=== PATIENT | male | born 1935 | race Caucasian/White ===

== ENCOUNTER 2017-01-06 10:52 | Emergency (ER) | payer MEDICARE ==
[~2017-01-06] VITALS: Ht 172.7 cm; Wt 124.0 kg
[~2017-01-06 10:52] MED LIST: DUONSOL2 NEB; LEVO50TA51 PO; LORTA5 PO; LOTR15T TOP; LOVA1TAB47 PO
[2017-01-06 10:58] VITALS: BP 116/60; PULSE 80; RESP 18; TEMP 98.4; O2SAT 96
--- NOTE | 2017-01-06 11:19 | PD ---
HPI Chief Complaint: General Weakness Time Seen by Provider: 11:06 Travel History International Travel<30 days: No Contact w/Intl Traveler<30days: No Traveled to known affect area: No History of Present Illness HPI This patient takes Coumadin. He had an INR drawn yesterday. This morning his called the doctor's office to check on the results and when they checked on the results he was advised to come to the emergency room because his level was too high. He does not know actual number. He is not having any bleeding. He does not even know why he takes Coumadin. He complains of some vague general weakness for the last one month but nothing acute today. Severity is mild to moderate. No alleviating factors. PFSH Past Medical History Hx Anticoagulant Therapy: Yes Arthritis: Yes Cancer: Yes (BASIL SKIN CANCER EAR) Cardiovascular Problems: Yes Diabetes: Yes Endocrine: Yes GERD: Yes Gout: Yes Genitourinary: No Hepatitis: No Hiatal Hernia: No Hypertension: Yes Musculoskeletal: Yes Neurologic: No Psychiatric: No Reproductive: No Respiratory: Yes (SOB WHILE WALKING TOO FAR) Integumentary: Yes Myocardial Infarction: Yes (UNKNOWN WHEN) Renal Failure: Yes Thyroid Disease: Yes (HYPOTHYROIDISM) Past Surgical History Abdominal Surgery: No Cardiac Surgery: No Ear Surgery: No Endocrine Surgery: No Eye Surgery: Yes (CATARACTS) Genitourinary Surgery: Yes (TRANSURETHRAL RECECTION OF BLADDER) Oral Surgery: No Thoracic Surgery: No Tonsillectomy: Yes Social History Alcohol Use: No Tobacco Use: No Substance Use: No Allergies-Medications (Allergen,Severity, Reaction): Coded Allergies: No Known Allergies (Verified , 01/06/17) Reported Meds & Prescriptions Reported Meds & Active Scripts Active Reported Warfarin 2.5 Mg Tab 2.5 Mg PO DAILY Levothyroxine (Levothyroxine Sodium) 88 Mcg Tab 88 Mcg PO DAILY Allopurinol 300 Mg Tab 300 Mg PO DAILY Atorvastatin (Atorvastatin Calcium) 40 Mg Tab 40 Mg PO HS Metoprolol Tartrate 25 Mg Tab 25 Mg PO BID Potassium Chloride ER (Potassium Chloride) 10 Meq Tab 10 Meq PO DAILY Magnesium Oxide 400 Mg Tab 400 Mg PO DAILY Bumetanide 2 Mg Tab 2 Mg PO DAILY Losartan (Losartan Potassium) 25 Mg Tab 25 Mg PO DAILY Hydrocodone-Acetaminophen 10-325 mg Tab 1 Tab PO Q6H PRN [place] ([place]) 450 Mg Cap 450 Mg PO DAILY D3 Super Strength (Cholecalciferol) 2,000 Unit Cap 2,000 Units PO DAILY Review of Systems General / Constitutional: No: Fever Eyes: No: Visual changes HENT: No: Headaches Cardiovascular: Positive: Edema, No: Chest Pain or Discomfort Respiratory: No: Shortness of Breath Gastrointestinal: No: Abdominal Pain Genitourinary: No: Dysuria Musculoskeletal: Positive: Weakness, Edema, No: Pain Skin: No Rash Neurologic: Positive: Weakness Psychiatric: No: Depression Endocrine: No: Polydipsia Hematologic/Lymphatic: No: Easy Bruising Physical Exam Narrative GENERAL: Well-nourished, well-developed patient in no apparent distress. SKIN: Focused skin assessment reveals no rash and nodules. Skin is Warm and dry. Has very thin skin and diffuse ecchymosis HEAD: Atraumatic. Normocephalic. EYES: Pupils equal and round. No scleral icterus. No injection or drainage. ENT: No nasal bleeding or discharge. Mucous membranes pink and moist. NECK: Trachea midline. No JVD. CARDIOVASCULAR: Regular rate and rhythm. No murmur appreciated. RESPIRATORY: No accessory muscle use. Clear to auscultation. Breath sounds equal bilaterally. GASTROINTESTINAL: Abdomen soft, obese, non-tender, nondistended. Hepatic and splenic margins not palpable. MUSCULOSKELETAL: No obvious deformities. No clubbing. No cyanosis. Symmetric edema of the ankles . NEUROLOGICAL: Awake and alert. No obvious cranial nerve deficits. Motor grossly within normal limits. Normal speech. PSYCHIATRIC: Appropriate mood and affect; insight and judgment normal. Data Data Last Documented VS Vital Signs Date Time Temp Pulse Resp B/P Pulse Ox O2 Delivery O2 Flow Rate FiO2 01/06/17 10:58 98.4 80 18 116/60 96 Orders Iv Access Insert/Monitor (01/06/17 11:14) Complete Blood Count With Diff (01/06/17 11:14) Basic Metabolic Panel (Bmp) (01/06/17 11:14) Prothrombin Time / Inr (Pt) (01/06/17 11:14) Phytonadione Inj ([place] Inj) (01/06/17 12:00) Labs Laboratory Tests Test 01/06/17 11:12 White Blood Count 6.5 TH/MM3 Red Blood Count 4.31 MIL/MM3 Hemoglobin 11.9 GM/DL Hematocrit 36.3 % Mean Corpuscular Volume 84.4 FL Mean Corpuscular Hemoglobin 27.7 PG Mean Corpuscular Hemoglobin 32.9 % Concent Red Cell Distribution Width 15.6 % Platelet Count 409 TH/MM3 Mean Platelet Volume 6.8 FL Neutrophils (%) (Auto) 59.9 % Lymphocytes (%) (Auto) 22.3 % Monocytes (%) (Auto) 13.7 % Eosinophils (%) (Auto) 3.8 % Basophils (%) (Auto) 0.3 % Neutrophils # (Auto) 3.9 TH/MM3 Lymphocytes # (Auto) 1.5 TH/MM3 Monocytes # (Auto) 0.9 TH/MM3 Eosinophils # (Auto) 0.2 TH/MM3 Basophils # (Auto) 0.0 TH/MM3 CBC Comment DIFF FINAL Differential Comment Prothrombin Time GREATER THAN 180.0 SEC Prothromb Time International GREATER THAN Ratio 16.7 RATIO Sodium Level 137 MEQ/L Potassium Level 3.4 MEQ/L Chloride Level 97 MEQ/L Carbon Dioxide Level 29.1 MEQ/L Anion Gap 11 MEQ/L Blood Urea Nitrogen 8 MG/DL Creatinine 1.10 MG/DL Estimat Glomerular Filtration 64 ML/MIN Rate Random Glucose 98 MG/DL Calcium Level 8.7 MG/DL [facility] Medical Decision Making Medical Screen Exam Complete: Yes Emergency Medical Condition: Yes Medical Record Reviewed: Yes Differential Diagnosis Supratherapeutic INR, subtherapeutic INR, electrolyte abnormality, anemia Narrative Course I have reviewed the patient's electronic medical record. IV placed CBC normal Metabolic profile is normal INR on Coumadin is greater than 16 He is not actively bleeding so treatment is to give him vitamin K injection and hold Coumadin I discussed this at length with patient and at bedside He is seeing his primary physician tomorrow in follow-up Diagnosis Primary Impression: Supratherapeutic INR Additional Impression: Generalized weakness Additional Instructions: The patient was advised to follow up with their physician and return if they worsen. Do not take Coumadin today or tomorrow Med/Other Pt SpecificInfo: Other Disposition: 01 DISCHARGE HOME Condition: Stable Mateus Medellin MD Jan 06, 2017 11:19
[2017-01-06 11:27] LABS: AUTOMATED NEUTROPHIL # 3.9 TH/MM3 (1.8-7.7); BASOPHIL % 0.3 % (0.0-2.0); EOSINOPHIL # 0.2 TH/MM3 (0-0.4); EOSINOPHIL % 3.8 % (0.0-4.0); HEMATOCRIT 36.3 % (39.0-51.0); HEMO FLAGS DIFF FINAL; LYMPH % 22.3 % (9.0-44.0); LYMPHOCYTE # 1.5 TH/MM3 (1.0-4.8); MEAN CELL VOLUME 84.4 FL (80.0-100.0); MEAN CORPUSCULAR HEMOGLOBIN 27.7 PG (27.0-34.0); MEAN CORPUSCULAR HGB CONC 32.9 % (32.0-36.0); MONO % 13.7 % (0.0-8.0); NEUT % 59.9 % (16.0-70.0); PLATELET COUNT 409 TH/MM3 (150-450); RED BLOOD COUNT 4.31 MIL/MM3 (4.50-5.90); RED CELL DISTRIBUTION WIDTH 15.6 % (11.6-17.2); WHITE BLOOD COUNT 6.5 TH/MM3 (4.0-11.0)
[2017-01-06 11:34] LABS: POTASSIUM 3.4 MEQ/L (3.5-5.1)
[2017-01-06 11:37] LABS: BICARBONATE 29.1 MEQ/L (21.0-32.0)
[2017-01-06] MEDS ORDERED: CHOL20005 PO (11:40)
[2017-01-06] MEDS ORDERED: ATOR40TA16 PO (11:40)
[2017-01-06] MEDS ORDERED: LOSA25TA PO (11:40)
[2017-01-06] MEDS ORDERED: METO25TA3 PO (11:40)
[2017-01-06] MEDS ORDERED: MAGN400T2 PO (11:40)
[2017-01-06] MEDS ORDERED: ALLO300T2 PO (11:40)
[2017-01-06] MEDS ORDERED: BUME2TAB PO (11:40)
[2017-01-06] MEDS ORDERED: WARF-18 PO (11:40)
[2017-01-06] MEDS ORDERED: SAW450CA2 PO (11:40)
[2017-01-06] MEDS ORDERED: LEVO88TA2 PO (11:40)
[2017-01-06] MEDS ORDERED: POTA10TA2 PO (11:40)
[2017-01-06] MEDS ORDERED: HYDR-3583 PO (11:40)
[2017-01-06 11:45] LABS: PROTHROMBIN TIME - PATIENT GREATER THAN 180.0 SEC (9.8-11.6)
[2017-01-06 11:47] LABS: INTERNATIONAL NORMALIZED RATIO GREATER THAN 16.7 RATIO
[2017-01-06] MEDS ORDERED: PHYTONADIONE INJ 1 MG/0.5 ML AMP SQ ONE (12:00)
[2017-01-06] MEDS ORDERED: PHYTONADIONE 10 MG/ML VIAL SQ ONE (13:00)
--- NOTE | 2017-01-06 17:05 | EKG ---
Date Performed: 01/06/2017 Time Performed: 11:05:25 PTAGE: 81 years EKG: Sinus rhythm WITH FIRST DEGREE AV BLOCK NONSPECIFIC INTRAVENTRICULAR CONDUCTION DELAY NONSPECIFIC ANTEROSEPTAL ST /T ABNORMALITY ABNORMAL ECG NO PREVIOUS TRACING DOCTOR: Brian Bruner Interpretating Date/Time 01/06/2017 17:04:15
== END 2017-01-06 13:00 | disposition home or self-care (01) ==
LOC: EDBD → PHED 10:52
DX: R79.1 Abnormal coagulation profile (principal); R53.1 Weakness; E11.9 Type 2 diabetes mellitus without complications; I12.9 Hypertensive chronic kidney disease with stage 1 through stage 4 chronic kidney disease, or unspecified chronic kidney disease; N18.9 Chronic kidney disease, unspecified; I25.2 Old myocardial infarction; E03.9 Hypothyroidism, unspecified; Z79.01 Long term (current) use of anticoagulants
CPT/HCPCS: 80048; 85025; 85610; 93005; 96372; 99284; J3430

== ENCOUNTER 2017-01-07 13:20 | Emergency (ER) | payer MEDICARE ==
[~2017-01-07] VITALS: Ht 172.7 cm; Wt 135.5 kg
[~2017-01-07 13:20] MED LIST changes: +ALLO300T2 PO; +ATOR40TA16 PO; +BUME2TAB PO; +CHOL20005 PO; -DUONSOL2 NEB; +HYDR-3583 PO; -LEVO50TA51 PO; +LEVO88TA2 PO; -LORTA5 PO; +LOSA25TA PO; -LOTR15T TOP; -LOVA1TAB47 PO; +MAGN400T2 PO; +METO25TA3 PO; +POTA10TA2 PO; +SAW450CA2 PO; +WARF-18 PO
[2017-01-07 13:25] VITALS: BP 140/99; PULSE 71; RESP 16; TEMP 98.3; O2SAT 96
[2017-01-07 14:07] LABS: AUTOMATED NEUTROPHIL # 3.2 TH/MM3 (1.8-7.7); BASOPHIL % 0.2 % (0.0-2.0); EOSINOPHIL # 0.3 TH/MM3 (0-0.4); EOSINOPHIL % 4.5 % (0.0-4.0); HEMATOCRIT 33.8 % (39.0-51.0); HEMO FLAGS DIFF FINAL; LYMPH % 22.4 % (9.0-44.0); LYMPHOCYTE # 1.3 TH/MM3 (1.0-4.8); MEAN CELL VOLUME 84.4 FL (80.0-100.0); MEAN CORPUSCULAR HEMOGLOBIN 28.5 PG (27.0-34.0); MEAN CORPUSCULAR HGB CONC 33.7 % (32.0-36.0); MONO % 15.1 % (0.0-8.0); NEUT % 57.8 % (16.0-70.0); PLATELET COUNT 372 TH/MM3 (150-450); RED BLOOD COUNT 4.01 MIL/MM3 (4.50-5.90); RED CELL DISTRIBUTION WIDTH 15.6 % (11.6-17.2); WHITE BLOOD COUNT 5.7 TH/MM3 (4.0-11.0)
[2017-01-07 14:20] LABS: CHLORIDE 97 MEQ/L (98-107); POTASSIUM 3.3 MEQ/L (3.5-5.1); SODIUM (NA) 136 MEQ/L (136-145)
[2017-01-07 14:25] LABS: ANION GAP 10 MEQ/L (5-15); BICARBONATE 28.7 MEQ/L (21.0-32.0); BLOOD UREA NITROGEN 10 MG/DL (7-18)
--- NOTE | 2017-01-07 14:26 | PD ---
HPI Chief Complaint: Abnormal Results Time Seen by Provider: 13:34 Travel History International Travel<30 days: No Contact w/Intl Traveler<30days: No Traveled to known affect area: No History of Present Illness HPI This 81-year-old male comes because of an elevated INR. He was seen in the emergency department yesterday. At that time his INR was greater than 16. He was given vitamin K and he was released. He has not had any obvious bleeding. He has been on Coumadin for about 3 years. He is on the Coumadin because he has had 2 pulmonary emboli. He had been well-controlled prolonged time. His mom says that about a month ago he took some Cipro and since then it seems he has been out of control. He went to see Dr. Glez today and was told to come here. He has had a very poor appetite the last few days. He denies pain. Denies headache. 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) Musculoskeletal: Yes Neurologic: No Psychiatric: No Reproductive: No Respiratory: Yes (SOB WHILE WALKING TOO FAR) Integumentary: Yes Myocardial Infarction: Yes Renal Failure: Yes Thyroid Disease: Yes (HYPOTHYROIDISM) Tetanus Vaccination: < 5 Years Influenza Vaccination: Yes Past Surgical History Abdominal Surgery: No Cardiac Surgery: No Ear Surgery: No Endocrine Surgery: No Eye Surgery: Yes (CATARACTS) Genitourinary Surgery: Yes (TRANSURETHRAL RECECTION OF BLADDER) Oral Surgery: No Thoracic Surgery: No Tonsillectomy: Yes Other Surgery: Yes Social History Alcohol Use: No Tobacco Use: No Substance Use: No Allergies-Medications (Allergen,Severity, Reaction): Coded Allergies: No Known Allergies (Verified , 01/07/17) Reported Meds & Prescriptions Reported Meds & Active Scripts Active Reported Warfarin 2.5 Mg Tab 2.5 Mg PO DAILY Levothyroxine (Levothyroxine Sodium) 88 Mcg Tab 88 Mcg PO DAILY Allopurinol 300 Mg Tab 300 Mg PO DAILY Atorvastatin (Atorvastatin Calcium) 40 Mg Tab 40 Mg PO HS Metoprolol Tartrate 25 Mg Tab 25 Mg PO BID Potassium Chloride ER (Potassium Chloride) 10 Meq Tab 10 Meq PO DAILY Magnesium Oxide 400 Mg Tab 400 Mg PO DAILY Bumetanide 2 Mg Tab 2 Mg PO DAILY Losartan (Losartan Potassium) 25 Mg Tab 25 Mg PO DAILY Hydrocodone-Acetaminophen 10-325 mg Tab 1 Tab PO Q6H PRN Saw [place] (Serenoa Repens) 450 Mg Cap 450 Mg PO DAILY D3 Super Strength (Cholecalciferol) 2,000 Unit Cap 2,000 Units PO DAILY Review of Systems General / Constitutional: No: Fever, Chills Eyes: No: Diploplia, Blurred Vision HENT: No: Headaches, Vertigo Cardiovascular: No: Chest Pain or Discomfort, Palpitations Respiratory: No: Shortness of Breath Gastrointestinal: Positive: Loss of Appetite, No: Nausea Genitourinary: No: Urgency Musculoskeletal: No: Myalgias Neurologic: Positive: Weakness Endocrine: No: Heat Intolerance, Cold Intolerance Hematologic/Lymphatic: Positive: Easy Bruising Physical Exam Narrative GENERAL: Obese male SKIN: Focused skin assessment warm/dry. He has fairly extensive ecchymoses all over HEAD: Atraumatic. Normocephalic. EYES: Pupils equal and round. No scleral icterus. No injection or drainage. ENT: No nasal bleeding or discharge. Mucous membranes pink and moist. NECK: Trachea midline. No JVD. CARDIOVASCULAR: Regular rate and rhythm. No murmur appreciated. RESPIRATORY: No accessory muscle use. Clear to auscultation. Breath sounds equal bilaterally. GASTROINTESTINAL: Abdomen soft, non-tender, nondistended. Hepatic and splenic margins not palpable. MUSCULOSKELETAL: There are deformities of both feet. No clubbing. No cyanosis. Bilateral pedal edema NEUROLOGICAL: Awake and alert. No obvious cranial nerve deficits. Motor grossly within normal limits. Normal speech. PSYCHIATRIC: Appropriate mood and affect; insight and judgment normal. Data Data Last Documented VS Vital Signs Date Time Temp Pulse Resp B/P Pulse Ox O2 Delivery O2 Flow Rate FiO2 01/07/17 15:14 73 18 125/54 98 Room Air 01/07/17 13:25 98.3 Orders Complete Blood Count With Diff (01/07/17 13:49) Prothrombin Time / Inr (Pt) (01/07/17 13:49) Act Partial Throm Time (Ptt) (01/07/17 13:49) Comprehensive Metabolic Panel (01/07/17 13:55) Lipase (01/07/17 13:55) Ct Brain W/O Iv Contrast(Rout) (01/07/17 14:00) Potassium Chloride (Kcl) (01/07/17 14:30) Phytonadione Inj (Vitamin K Inj) (01/07/17 15:15) Labs Laboratory Tests Test 01/07/17 14:00 White Blood Count 5.7 TH/MM3 Red Blood Count 4.01 MIL/MM3 Hemoglobin 11.4 GM/DL Hematocrit 33.8 % Mean Corpuscular Volume 84.4 FL Mean Corpuscular Hemoglobin 28.5 PG Mean Corpuscular Hemoglobin 33.7 % Concent Red Cell Distribution Width 15.6 % Platelet Count 372 TH/MM3 Mean Platelet Volume 6.4 FL Neutrophils (%) (Auto) 57.8 % Lymphocytes (%) (Auto) 22.4 % Monocytes (%) (Auto) 15.1 % Eosinophils (%) (Auto) 4.5 % Basophils (%) (Auto) 0.2 % Neutrophils # (Auto) 3.2 TH/MM3 Lymphocytes # (Auto) 1.3 TH/MM3 Monocytes # (Auto) 0.9 TH/MM3 Eosinophils # (Auto) 0.3 TH/MM3 Basophils # (Auto) 0.0 TH/MM3 CBC Comment DIFF FINAL Differential Comment Prothrombin Time 162.6 SEC Prothromb Time International 13.2 RATIO Ratio Activated Partial 115.0 SEC Thromboplast Time Sodium Level 136 MEQ/L Potassium Level 3.3 MEQ/L Chloride Level 97 MEQ/L Carbon Dioxide Level 28.7 MEQ/L Anion Gap 10 MEQ/L Blood Urea Nitrogen 10 MG/DL Creatinine 1.20 MG/DL Estimat Glomerular Filtration 58 ML/MIN Rate Random Glucose 106 MG/DL Calcium Level 8.5 MG/DL Total Bilirubin 1.0 MG/DL Aspartate Amino Transf 44 U/L (AST/SGOT) Alanine Aminotransferase 13 U/L (ALT/SGPT) Alkaline Phosphatase 57 U/L Total Protein 6.9 GM/DL Albumin 2.1 GM/DL Lipase 120 U/L [facility] Medical Decision Making Medical Screen Exam Complete: Yes Emergency Medical Condition: Yes Medical Record Reviewed: Yes Differential Diagnosis Differential includes coagulopathy, Narrative Course His INR today is 13 as compared to greater than 16 yesterday. I will repeat the vitamin K. His blood pressure has been stable. I did order a CT scan to assess for possible acute cranial hemorrhage this appears negative. I did discuss the case with Dr. Akbar to advise him of our findings. CT scan has been read as negative. Patient will be released Diagnosis Primary Impression: Supratherapeutic INR Additional Instructions: Follow-up with Dr. Glez tomorrow Disposition: 01 DISCHARGE HOME Condition: Stable Adán Higgins MD Jan 07, 2017 14:26
[2017-01-07 14:28] LABS: ALT (GPT) 13 U/L (12-78); AST (GOT) 44 U/L (15-37); GLOMERULAR FILTRATION RATE 58 ML/MIN (>89)
[2017-01-07 14:30] LABS: ALKALINE PHOSPHATASE 57 U/L (45-117)
[2017-01-07] MEDS ORDERED: POTASSIUM CHLORIDE 20 MEQ CONTROLLED RELEASE TAB PO ONE (14:30)
[2017-01-07 14:56] LABS: PROTHROMBIN TIME - PATIENT 162.6 SEC (9.8-11.6)
[2017-01-07 14:59] LABS: INTERNATIONAL NORMALIZED RATIO 13.2 RATIO
[2017-01-07 15:14] VITALS: BP 125/54; PULSE 73; RESP 18; O2SAT 98
[2017-01-07] MEDS ORDERED: PHYTONADIONE 10 MG/ML VIAL SQ ONE (15:15)
--- NOTE | 2017-01-07 15:30 | RADRPT ---
EXAM DATE/TIME: 01/07/2017 14:56 [facility] COMPARISON: CT BRAIN W/O CONTRAST, July 26, 2015, 19:36. CT CERVICAL SPINE W/O CONTRAST, July 26, 2015, 19 :36. INDICATIONS : Weakness. RADIATION DOSE: 61.62 CTDIvol (mGy) MEDICAL HISTORY : Myocardial infarction. Diabetes mellitus type 2. Renal failure, chronic. Hypertension. Pulmonary emb olism. SURGICAL HISTORY : None. ENCOUNTER: Initial ACUITY: 1 day PAIN SCALE: 0/10 LOCATION: cranial TECHNIQUE: Multiple contiguous axial images were obtained of the head. Using automated exposure control and adj ustment of the mA and/or kV according to patient size, radiation dose was kept as low as reasonably a chievable to obtain optimal diagnostic quality images. FINDINGS: CEREBRUM: The ventricles are normal for age. There is decreased attenuation of the periventricular white matter most consistent with microvascular ischemic demyelinative change. No evidence of midline shift, mass lesion, hemorrhage or acute infarction. No extra-axial fluid collections are seen. POSTERIOR FOSSA: The cerebellum and brainstem are intact. The 4th ventricle is midline. The cerebellopontine angle i s unremarkable. EXTRACRANIAL: The visualized portion of the orbits is intact. SKULL: The calvaria is intact. No evidence of skull fracture. CONCLUSION: 1. Microvascular ischemic demyelinative change. No acute intracranial abnormality. Silver Romero MD on January 07, 2017 at 15:25 Board Certified Radiologist. This report was verified electronically.
[2017-01-07 15:57] VITALS: BP 127/56; PULSE 67; RESP 16; O2SAT 94
== END 2017-01-07 16:13 | disposition home or self-care (01) ==
LOC: PHED 13:20
DX: R79.1 Abnormal coagulation profile (principal); E11.9 Type 2 diabetes mellitus without complications; I10 Essential (primary) hypertension; E03.9 Hypothyroidism, unspecified; I25.2 Old myocardial infarction; Z86.711 Personal history of pulmonary embolism; Z79.01 Long term (current) use of anticoagulants
CPT/HCPCS: 70450; 80053; 83690; 85025; 85610; 85730; 96372; 99284; J3430

== ENCOUNTER 2018-01-05 17:43 | Inpatient (IN) | payer MEDICARE ==
[~2018-01-05] VITALS: Ht 170.2 cm; Wt 132.3 kg
[2018-01-05] VITALS (19 sets, daily range): BP systolic 57–123; BP diastolic 25–86; PULSE 80–99; RESP 18–27; TEMP 99.1–99.3; O2SAT 94–100
[~2018-01-05 17:43] MED LIST changes: -CHOL20005 PO; +D200CAP PO
[2018-01-05] MEDS ORDERED: SODIUM CHLORIDE 0.9% FLUSH 10 ML FLUSH IV FLUSH PRN ×2 (18:00→20:45)
--- NOTE | 2018-01-05 18:17 | RADRPT ---
EXAM DATE: 01/05/2018 6:09 PM EDT AGE/SEX: 82 years / Male INDICATIONS: Syncopal episode and shortness of breath. CLINICAL DATA: This is the patient's initial encounter. Patient reports that signs and symptoms have been present for 1 day and indicates a pain score of Nonresponsive. MEDICAL/SURGICAL HISTORY: Non-responsive. Non-responsive. COMPARISON: [facility], CHEST SINGLE AP, 07/26/2015. . FINDINGS: Cardiac silhouette is enlarged with mild prominence of the central pulmonary vascularity. No signific ant new focal pleural or parenchymal opacities. Bony thorax is intact. CONCLUSION: 1. Cardiomegaly with slight positive fluid balance. Electronically signed by: Sean Montoya MD 01/05/2018 6:15 PM EDT
[2018-01-05 18:19] LABS: AUTOMATED NEUTROPHIL # 9.1 TH/MM3 (1.8-7.7); BASOPHIL % 0.1 % (0.0-2.0); EOSINOPHIL % 0.2 % (0.0-4.0); HEMATOCRIT 41.1 % (39.0-51.0); HEMOGLOBIN 13.8 GM/DL (13.0-17.0); LYMPH % 5.1 % (9.0-44.0); LYMPHOCYTE # 0.5 TH/MM3 (1.0-4.8); MEAN CELL VOLUME 92.8 FL (80.0-100.0); MEAN CORPUSCULAR HEMOGLOBIN 31.1 PG (27.0-34.0); MEAN CORPUSCULAR HGB CONC 33.5 % (32.0-36.0); MEAN PLATELET VOLUME 7.4 FL (7.0-11.0); MONO % 1.7 % (0.0-8.0); MONOCYTE # 0.2 TH/MM3 (0-0.9); NEUT % 92.9 % (16.0-70.0); PLATELET COUNT 165 TH/MM3 (150-450); RED BLOOD COUNT 4.42 MIL/MM3 (4.50-5.90); RED CELL DISTRIBUTION WIDTH 15.1 % (11.6-17.2); WHITE BLOOD COUNT 9.8 TH/MM3 (4.0-11.0)
[2018-01-05 18:29] LABS: CHLORIDE 102 MEQ/L (98-107); SODIUM (NA) 136 MEQ/L (136-145)
[2018-01-05 18:32] LABS: CALCIUM 8.6 MG/DL (8.5-10.1)
[2018-01-05 18:33] LABS: BICARBONATE 27.2 MEQ/L (21.0-32.0); BLOOD UREA NITROGEN 13 MG/DL (7-18); GLUCOSE,RANDOM 137 MG/DL (74-106)
[2018-01-05 18:35] LABS: INTERNATIONAL NORMALIZED RATIO 1.1 RATIO; PROTHROMBIN TIME - PATIENT 10.9 SEC (9.8-11.6)
[2018-01-05 18:36] LABS: ALT (GPT) 21 U/L (12-78); AST (GOT) 35 U/L (15-37); GLOMERULAR FILTRATION RATE 64 ML/MIN (>89)
[2018-01-05 18:37] LABS: TOTAL PROTEIN 6.8 GM/DL (6.4-8.2)
[2018-01-05 18:39] LABS: ALKALINE PHOSPHATASE 79 U/L (45-117)
[2018-01-05 18:41] LABS: TROPONIN I 0.04 NG/ML (0.02-0.05)
[2018-01-05] MEDS ORDERED: LIDOCAINE HCL 1% PF 30 ML VIAL INFIL ONE (19:15)
[2018-01-05] MEDS ORDERED: POTA10TA2 PO (19:17)
[2018-01-05] MEDS ORDERED: APIX2.5T PO (19:17)
[2018-01-05] MEDS ORDERED: TYLE325T PO (19:18)
--- NOTE | 2018-01-05 19:20 | PD ---
HPI Chief Complaint: Altered Mental Status Time Seen by Provider: 17:55 Travel History International Travel<30 days: No Contact w/Intl Traveler<30days: No Traveled to known affect area: No History of Present Illness HPI This is an 82-year-old male who has a history of congestive heart failure who presents to the emergency department having been weak today unable to get up from his chair. When his helped him she says that he ran to the bathroom and felt like he could not slow down. He subsequently fell in the bathroom next to the toilet and sustained a severe skin tear on his left leg and was unable to get up. Patient is unable to provide much history and is very somnolent. EMS reports that the patient was hypoxic to 50% in the field and they placed him on a nonrebreather. PFSH Past Medical History Hx Anticoagulant Therapy: Yes Arthritis: Yes Anxiety: Yes Cancer: Yes (BASAL SKIN CANCER EAR) Cardiac Catheterization: Yes Cardiovascular Problems: Yes (htn on meds) High Cholesterol: Yes Chest Pain: Yes Congestive Heart Failure: Yes COPD: Yes Coronary Artery Disease: Yes Diabetes: No Diminished Hearing: Yes Endocrine: Yes Gastrointestinal Disorders: Yes GERD: Yes Gout: Yes Genitourinary: Yes (several transurethral resection of bladder) Hepatitis: No Hiatal Hernia: No Hypertension: Yes Medical other: Yes (HIXTORY OF PULMONARY EMBOLISM 01/20/07 AND 10/03/2009) Musculoskeletal: Yes Neurologic: No Psychiatric: No Reproductive: No Respiratory: Yes Integumentary: Yes Myocardial Infarction: Yes Renal Failure: Yes (hx of decreased kidney function) Thyroid Disease: Yes (HYPOTHYROIDISM) Tetanus Vaccination: < 5 Years Influenza Vaccination: Yes Past Surgical History Abdominal Surgery: No Cardiac Surgery: No Ear Surgery: No Endocrine Surgery: No Eye Surgery: Yes (CATARACTS) Genitourinary Surgery: Yes (TRANSURETHRAL RECECTION OF BLADDER) Oral Surgery: No Thoracic Surgery: No Tonsillectomy: Yes Other Surgery: Yes (left ankle surgery with stainless steel screws, left knee debriment) Social History Alcohol Use: No Tobacco Use: No (quit at age 34 smoked cigs) Substance Use: No Allergies-Medications (Allergen,Severity, Reaction): Coded Allergies: No Known Allergies (Verified Allergy, Unknown, 01/05/18) Reported Meds & Prescriptions Reported Meds & Active Scripts Active Reported Tylenol (Acetaminophen) 325 Mg Tab 650 Mg PO HS PRN Eliquis (Apixaban) 2.5 Mg Tab 2.5 Mg PO BID Potassium Chloride ER (Potassium Chloride) 10 Meq Tab 20 Meq PO DAILY Levothyroxine (Levothyroxine Sodium) 88 Mcg Tab 88 Mcg PO DAILY Allopurinol 300 Mg Tab 300 Mg PO DAILY Atorvastatin (Atorvastatin Calcium) 40 Mg Tab 40 Mg PO HS Metoprolol Tartrate 25 Mg Tab 25 Mg PO BID Magnesium Oxide 400 Mg Tab 400 Mg PO DAILY Losartan (Losartan Potassium) 25 Mg Tab 25 Mg PO DAILY Hydrocodone-Acetaminophen 10-325 mg Tab 1 Tab PO Q6H PRN [place] ([place]) 450 Mg Cap 450 Mg PO DAILY D3 Super Strength (Cholecalciferol) 2,000 Unit Cap 2,000 Units PO DAILY Review of Systems ROS Limitations: Poor Historian Physical Exam Narrative GENERAL: Morbidly obese SKIN: 2 large skin tears involving both upper extremities, 1 large deep skin tear with subcutaneous fat exposure on the left posterior thigh HEAD: Atraumatic. Normocephalic. EYES: Pupils equal and round. No injection or drainage. ENT: Moist mucous membranes NECK: Trachea midline. CARDIOVASCULAR: Regular rate and rhythm. No murmur appreciated. RESPIRATORY: Rales in the right lower lung base. Tachypneic. GASTROINTESTINAL: Abdomen soft, non-tender, nondistended. MUSCULOSKELETAL: No obvious deformities. NEUROLOGICAL: Awake and oriented to person, place and time. PSYCHIATRIC: Appropriate mood and affect; insight and judgment normal. Data Data Last Documented VS Vital Signs Date Time Temp Pulse Resp B/P (MAP) Pulse Ox O2 Delivery O2 Flow Rate FiO2 01/05/18 19:55 96 18 104/56 (72) 98 Venturi Mask 40 01/05/18 18:[address] Brain W/O Iv Contrast(Rout) (01/05/18 ) Complete Blood Count With Diff (01/05/18 17:55) Comprehensive Metabolic Panel (01/05/18 17:55) Prothrombin Time / Inr (Pt) (01/05/18 17:55) Act Partial Throm Time (Ptt) (01/05/18 17:55) Troponin I (01/05/18 17:55) Urinalysis - C+S If Indicated (01/05/18 17:55) Arterial Blood Gas (Abg) (01/05/18 17:55) Chest, Single Ap (01/05/18 17:55) Resp Bipap / Cpap Non Invas Vt (01/05/18 17:55) Blood Glucose (01/05/18 17:55) Ecg Monitoring (01/05/18 17:55) Iv Access Insert/Monitor (01/05/18 17:55) Oximetry (01/05/18 17:55) Sodium Chloride 0.9% Flush (Ns Flush) (01/05/18 18:00) B-Type Natriuretic Peptide (01/05/18 17:55) Blood Culture (01/05/18 17:55) Lactic Acid (01/05/18 17:55) Thyroid Stimulating Hormone (01/05/18 17:55) Lidocaine Pf 1% Inj (Xylocaine-Mpf 1% In (01/05/18 19:15) Furosemide Inj (Lasix Inj) (01/05/18 20:15) Admit Order (Ed Use Only) (01/05/18 20:35) Labs Laboratory Tests Test 01/05/18 17:53 01/05/18 17:55 01/05/18 20:10 Blood Gas Puncture Site LT RADIAL Blood Gas Patient Temperature 98.6 Blood Gas HCO3 22 mmol/L Blood Gas Base Excess -1.2 mmol/L Blood Gas Oxygen Saturation 98 % Arterial Blood pH 7.50 Arterial Blood Partial Pressure CO2 28 mmHG Arterial Blood Partial Pressure O2 455 mmHG Arterial Blood Oxygen Content 20.5 Vol % Arterial Blood Carboxyhemoglobin 1.6 % Arterial Blood Methemoglobin 1.2 % Blood Gas Hemoglobin 14.2 G/DL Oxygen Delivery Device BIPAP Blood Gas Ventilator Setting IPAP15/EPAP5 Blood Gas Inspired Oxygen 100 % White Blood Count 9.8 TH/MM3 Red Blood Count 4.42 MIL/MM3 Hemoglobin 13.8 GM/DL Hematocrit 41.1 % Mean Corpuscular Volume 92.8 FL Mean Corpuscular Hemoglobin 31.1 PG Mean Corpuscular Hemoglobin Concent 33.5 % Red Cell Distribution Width 15.1 % Platelet Count 165 TH/MM3 Mean Platelet Volume 7.4 FL Neutrophils (%) (Auto) 92.9 % Lymphocytes (%) (Auto) 5.1 % Monocytes (%) (Auto) 1.7 % Eosinophils (%) (Auto) 0.2 % Basophils (%) (Auto) 0.1 % Neutrophils # (Auto) 9.1 TH/MM3 Lymphocytes # (Auto) 0.5 TH/MM3 Monocytes # (Auto) 0.2 TH/MM3 Eosinophils # (Auto) 0.0 TH/MM3 Basophils # (Auto) 0.0 TH/MM3 CBC Comment DIFF FINAL Differential Comment Prothrombin Time 10.9 SEC Prothromb Time International Ratio 1.1 RATIO Activated Partial Thromboplast Time 25.0 SEC Blood Urea Nitrogen 13 MG/DL Creatinine 1.10 MG/DL Random Glucose 137 MG/DL Total Protein 6.8 GM/DL Albumin 3.0 GM/DL Calcium Level 8.6 MG/DL Alkaline Phosphatase 79 U/L Aspartate Amino Transf (AST/SGOT) 35 U/L Alanine Aminotransferase (ALT/SGPT) 21 U/L Total Bilirubin 1.0 MG/DL Sodium Level 136 MEQ/L Potassium Level 3.8 MEQ/L Chloride Level 102 MEQ/L Carbon Dioxide Level 27.2 MEQ/L Anion Gap 7 MEQ/L Estimat Glomerular Filtration Rate 64 ML/MIN Lactic Acid Level 2.2 mmol/L Troponin I 0.04 NG/ML B-Type Natriuretic Peptide 84 PG/ML Thyroid Stimulating Hormone 3rd Gen 5.110 uIU/ML Urine Collection Type CATH Urine Color YELLOW Urine Turbidity CLEAR Urine pH 7.0 Urine Specific [place] 1.020 Urine Protein NEG mg/dL Urine Glucose (UA) NEG mg/dL Urine Ketones NEG mg/dL Urine Occult Blood NEG Urine Nitrite NEG Urine Bilirubin NEG Urine Urobilinogen 0.2 MG/DL Urine Leukocyte Esterase NEG Urine WBC 0-2 /hpf Urine Collection Time 2009 [facility] Medical Decision Making Medical Screen Exam Complete: Yes Emergency Medical Condition: Yes Interpretation(s) Temperature is 99.1 Normotensive Hypoxic on room air No leukocytosis 93% neutrophils Electrolytes are reassuring TSH is elevated BNP is 84 Lactic acid is 2.2 Urinalysis demonstrates no urinary tract infection ABG demonstrates some respiratory alkalosis Last 24 hours Impressions Chest X-Ray 01/05/18 1755 Signed Impressions: CONCLUSION: 1. Cardiomegaly with slight positive fluid balance. Head CT 01/05/18 0000 Signed Impressions: CONCLUSION: 1. Senescent changes without acute intracranial abnormality. Differential Diagnosis Intracranial hemorrhage, pneumonia, congestive heart failure, sepsis Narrative Course This is an 82-year-old male who presents to the emergency department with increasing weakness and debility over the past several months having been too weak to get off the couch earlier today and subsequently falling in the bathroom unable to get up. On arrival in the emergency department he appeared very somnolent and was on a nonrebreather due to hypoxia appreciated in the field. Given his somnolent appearance he was transitioned to BiPAP and an ABG was obtained which demonstrated respiratory alkalosis but no hypercarbia. Patient was weaned off of BiPAP. He was placed on a monitor and an IV was established. Labs were obtained which were reassuring with a mildly elevated lactic acid but no leukocytosis and reassuring electrolytes. BNP was normal. Chest x-ray demonstrates some possible pulmonary congestion. The patient has terrible skin tears on multiple areas of his body. The most severe was on the left thigh which had subcutaneous fat exposed. I attempted to repair this the best I could with several deep sutures, several superficial sutures and Steri-Strips. Due to the patient's skin tears on both arms we had great difficulty obtaining accurate blood pressure readings. The patient was talking to us, awake and alert and had a strong radial pulse throughout his emergency department stay. I did cover him with broad-spectrum antibiotics given his temperature of 99.3 and hypoxia for possible pneumonia and sepsis however I do not think the patient is in shock based on his clinical exam at this time. He will be admitted to the intensive care unit for close monitoring. I did make several attempts at a radial arterial line but the patient appears to have severe calcification in both radial arteries limiting the passage of the catheter. I did discuss with the patient's his goals of care. He has a signed living will at the bedside however she says that he would not want to be kept alive long-term on machines but he would want CPR or short-term mechanical ventilation if it was expected to reverse his condition. Critical Care Narrative Aggregate critical care time was 55 minutes. Time to perform other separately billable procedures was not included in the critical care time. My time did not include minutes spent treating any other patients simultaneously or on activities that did not directly contribute to the patient's treatment. The services I provided to this patient were to treat and/or prevent clinically significant deterioration that could result in: Disability, I provided critical care services requiring my management, as noted below: Chart data review, documentation time, medication orders and management, vital sign assessments/reviewing monitor data, ordering and reviewing lab tests, ordering and interpreting/reviewing x-rays and diagnostic studies, care of the patient and discussion of the patient with the admitting physicians. Procedures Procedure Narrative Skin tear repair: A large gaping skin tear is present on the left posterior thigh with subcutaneous fat exposed. The area was anesthetized with 5 cc of 1% lidocaine. 2 deep 4-0 Vicryl sutures were placed and 2 superficial 4-0 nylon sutures were placed. The remainder of the skin tear was closed with Steri- Strips. There was significant skin loss during the injury so skin was not able to be closely reapproximated. Physician Communication Physician Communication Discussed with Dr. Rider Diagnosis Primary Impression: Hypoxia Additional Impression: Weakness Admitting Information Admitting Physician Requests: Admit Karlee Morales MD Jan 05, 2018 19:20
--- NOTE | 2018-01-05 20:06 | RADRPT ---
EXAM DATE: 01/05/2018 7:52 PM EDT AGE/SEX: 82 years / Male INDICATIONS: Fall. Generalized weakness. Altered mental status. CLINICAL DATA: This is the patient's initial encounter. Patient reports that signs and symptoms have been present for 1 day and indicates a pain score of 0/10. MEDICAL/SURGICAL HISTORY: Hypertension. Renal failure. Tonsillectomy. RADIATION DOSE: 63.92 CTDI (mGy) ; Patient motion COMPARISON: [facility], CT BRAIN W/O CONTRAST, 01/07/2017. . TECHNIQUE: CT of the head without contrast. Using automated exposure control and adjustment of the mA and/or kV according to patient size, radiation dose was kept as low as reasonably achievable to ob tain optimal diagnostic quality images. DICOM format image data is available electronically for revi ew and comparison. FINDINGS: Cerebrum: Moderate diffuse cerebral atrophy. Moderate periventricular white matter demyelination. Th e ventricles are normal for degree of atrophy. No evidence of midline shift, mass lesion, hemorrhage or acute infarction. No extraaxial fluid collections are seen. Posterior Fossa: The cerebellum and brainstem are intact. The 4th ventricle is midline. The cerebe llopontine angle is unremarkable. Extracranial: The visualized portion of the orbits is intact. Skull: The calvaria is intact. No evidence of skull fracture. CONCLUSION: 1. Senescent changes without acute intracranial abnormality. Electronically signed by: Sean Montoya MD 01/05/2018 8:04 PM EDT
[2018-01-05] MEDS ORDERED: FUROSEMIDE 40 MG/4 ML VIAL IV PUSH ONE (20:15)
[2018-01-05 20:24] LABS: BILIRUBIN, URINE NEG (NEG); BLOOD, URINE NEG (NEG); GLUCOSE,URINE NEG (NEG); KETONE, URINE NEG (NEG); NITRITE,URINE NEG (NEG); URINE COLOR YELLOW (YELLW/STRAW); URINE LEUKOCYTE ESTERASE NEG (NEG)
[2018-01-05 20:33] LABS: WBC, URINE 0-2 /hpf (0-5)
[2018-01-05] MEDS ORDERED: BISACODYL 10 MG SUPP RECTAL PRN (20:45)
[2018-01-05] MEDS ORDERED: NALOXONE HCL 0.4 MG/ML AMP IV PUSH PRN (20:45)
[2018-01-05] MEDS ORDERED: SENNOSIDES 8.6 MG TAB PO PRN (20:45)
[2018-01-05] MEDS ORDERED: LACTULOSE SYRUP 20 GM/30 ML CUP PO PRN (20:45)
[2018-01-05] MEDS ORDERED: MAGNESIUM HYDROXIDE SUSP 30 ML CUP PO PRN (20:45)
[2018-01-05] MEDS ORDERED: ONDANSETRON HCL 4 MG/2 ML VIAL IVP PRN (20:45)
[2018-01-05] MEDS: APIXABAN 2.5 MG TABLET PO SCH (21:00)
[2018-01-05] MEDS ORDERED: RESP: ALBUTEROL 2.5 MG/IPRATROPIUM 0.5 MG NEB (PRN) NEB (21:00)
[2018-01-05] MEDS: METOPROLOL TARTRATE 25 MG TAB PO SCH (21:00)
[2018-01-05] MEDS ORDERED: VANCOMYCIN INJ 1,000 MG in SODIUM CHLOR 0.9% 250 ML INJ 250 ML IV ONE (22:30)
[2018-01-05] MEDS ORDERED: ACETAMINOPHEN 500 MG CPLT PO ONE (22:45)
[2018-01-05] MEDS: cefTRIAXone INJ 1,000 MG in SODIUM CHLORIDE 0.9% INJ 100 ML IV SCH (22:48)
[2018-01-05] MEDS: ACETAMINOPHEN 325 MG TAB PO PRN (22:49)
[2018-01-05] MEDS: SODIUM CHLORIDE 0.9% FLUSH 10 ML FLUSH IV FLUSH SCH (22:54)
[2018-01-05] MEDS ORDERED: FUROSEMIDE 40 MG/4 ML VIAL IV PUSH SCH (23:00)
[2018-01-05] MEDS ORDERED: SODIUM CHLORID 0.9% 500 ML INJ 500 ML IV ONE (23:45)
[2018-01-06] VITALS (43 sets, daily range): BP systolic 70–156; BP diastolic 38–79; PULSE 60–90; RESP 16–42; TEMP 98.4–98.8; O2SAT 80–100
[2018-01-06 05:28] LABS: AUTOMATED NEUTROPHIL # 6.1 TH/MM3 (1.8-7.7); BASOPHIL % 0.5 % (0.0-2.0); EOSINOPHIL % 0.7 % (0.0-4.0); HEMATOCRIT 37.7 % (39.0-51.0); HEMOGLOBIN 12.3 GM/DL (13.0-17.0); LYMPH % 5.6 % (9.0-44.0); LYMPHOCYTE # 0.4 TH/MM3 (1.0-4.8); MEAN CELL VOLUME 93.1 FL (80.0-100.0); MEAN CORPUSCULAR HEMOGLOBIN 30.5 PG (27.0-34.0); MEAN CORPUSCULAR HGB CONC 32.8 % (32.0-36.0); MEAN PLATELET VOLUME 7.5 FL (7.0-11.0); MONO % 6.8 % (0.0-8.0); MONOCYTE # 0.5 TH/MM3 (0-0.9); NEUT % 86.4 % (16.0-70.0); PLATELET COUNT 158 TH/MM3 (150-450); RED BLOOD COUNT 4.05 MIL/MM3 (4.50-5.90); RED CELL DISTRIBUTION WIDTH 15.5 % (11.6-17.2)
[2018-01-06 05:39] LABS: CHLORIDE 104 MEQ/L (98-107); SODIUM (NA) 139 MEQ/L (136-145)
[2018-01-06 05:45] LABS: CALCIUM 8.2 MG/DL (8.5-10.1)
[2018-01-06 05:46] LABS: ALBUMIN 2.6 GM/DL (3.4-5.0); BICARBONATE 26.8 MEQ/L (21.0-32.0); BLOOD UREA NITROGEN 21 MG/DL (7-18); GLUCOSE,RANDOM 119 MG/DL (74-106)
[2018-01-06 05:49] LABS: ALT (GPT) 20 U/L (12-78); AST (GOT) 38 U/L (15-37); GLOMERULAR FILTRATION RATE 39 ML/MIN (>89)
[2018-01-06 05:50] LABS: TOTAL PROTEIN 6.2 GM/DL (6.4-8.2)
[2018-01-06 05:52] LABS: ALKALINE PHOSPHATASE 66 U/L (45-117)
[2018-01-06] MEDS: LEVOTHYROXINE SODIUM 88 MCG TAB PO SCH (06:22)
--- NOTE | 2018-01-06 06:39 | HHI.HP ---
[facility] Service Critical Care Medicine Primary Care Physician Non-Staff Admission Diagnosis hypoxia, pulmonary edema Diagnosis: (1) Pneumonia Diagnosis: Principal (2) Sepsis Diagnosis: Principal (3) Respiratory insufficiency Diagnosis: Principal (4) LEATHA (acute kidney injury) Diagnosis: Principal (5) Hypoxia Diagnosis: Principal (6) Weakness Diagnosis: Principal (7) COPD (chronic obstructive pulmonary disease) Diagnosis: Secondary (8) CAD (coronary artery disease) Diagnosis: Secondary (9) History of DVT and PE Diagnosis: Secondary Chief Complaint: Weakness and shortness of breath Travel History International Travel<30 Days: No Contact w/Intl Traveler <30 Da: No Traveled to Known Affected Are: No Sepsis Criteria SIRS Criteria (2 or more): Heart rate over 90, RR > 20 or PaCO2 < 32 Sepsis Criteria (SIRS+source): Infect source susp/known Severe Sepsis (+one): Lactate >2 History of Present Illness This is an 82-year-old male with morbid obesity, COPD/emphysema, history of DVT and PE, coronary artery disease, questionable history of congestive heart failure, chronically appearing pedal edema who presented to the emergency department having been weak for several months, worse over the last 24 hours. Patient is a very poor historian most history obtained from chart review. Yesterday he fell in the bathroom, and was unable to get up, sustained a severe skin tear on his left leg. Apparently for EMS patient was hypoxic to 50% in the field and they placed him on a nonrebreather. Patient was somnolent in the ED and was placed on BiPAP and an ABG showed respiratory alkalosis but no hypercarbia. Patient was subsequently weaned off of BiPAP. Chest x-ray demonstrates some possible pulmonary congestion, and on my review showed possible left lower lobe infiltrate. Left thigh had large skin tear with subcutaneous fat which was sutured by Dr. Morales. There are extensively multiple skin tears and bruising all over her skin. He received 500 mL fluid bolus for hypotension but accuracy of the BP reading cannot be determined according to the ED notes, patient was completely asymptomatic. Patient was started on Rocephin to cover for community-acquired pneumonia, received 1 dose of vancomycin also. I evaluated the patient in the ICU today. He appears to be breathing more comfortably now currently on 3 L nasal cannula maintaining good oxygen saturation. Extensive skin bruising and tenderness noted. Creatinine today is 1.7, no further diuresis will be given-it appears like patient received 40 mg of IV Lasix 1 yesterday. Start careful hydration with normal saline for 24 hours. There is no clinical evidence of CHF. We will continue treatment of sepsis with broad-spectrum antibiotics with Rocephin and azithromycin Review of Systems ROS Limitations: Poor Historian, Other (As per HPI) Past Family Social History Allergies: Coded Allergies: No Known Allergies (Verified Allergy, Unknown, 01/05/18) Past Medical History Coronary artery disease COPD/emphysema History of DVT PE Morbid obesity Obstructive sleep apnea BPH Basal cell cancer of the ear Past Surgical History Left knee and ankle surgery Cataract surgery TURP Reported Medications Tylenol (Acetaminophen) 325 Mg Tab 650 Mg PO HS PRN Eliquis (Apixaban) 2.5 Mg Tab 2.5 Mg PO BID Potassium Chloride ER (Potassium Chloride) 10 Meq Tab 20 Meq PO DAILY Levothyroxine (Levothyroxine Sodium) 88 Mcg Tab 88 Mcg PO DAILY Allopurinol 300 Mg Tab 300 Mg PO DAILY Atorvastatin (Atorvastatin Calcium) 40 Mg Tab 40 Mg PO HS Metoprolol Tartrate 25 Mg Tab 25 Mg PO BID Magnesium Oxide 400 Mg Tab 400 Mg PO DAILY Losartan (Losartan Potassium) 25 Mg Tab 25 Mg PO DAILY Hydrocodone-Acetaminophen 10-325 mg Tab 1 Tab PO Q6H PRN Saw Flushing ([place]) 450 Mg Cap 450 Mg PO DAILY D3 Super Strength (Cholecalciferol) 2,000 Unit Cap 2,000 Units PO DAILY Active Ordered Medications Reviewed Family History Unable to give a reliable history, poor historian Social History Quit smoking and drinking 40 years ago Physical Exam Vital Signs Vital Signs Date Time Temp Pulse Resp B/P (MAP) Pulse Ox O2 Delivery O2 Flow Rate FiO2 01/06/18 05:15 78 33 96 01/06/18 05:00 76 22 141/46 (77) 97 01/06/18 04:45 74 33 97 01/06/18 04:39 82 21 137/45 (75) 96 01/06/18 04:30 76 27 97 01/06/18 04:15 74 23 97 01/06/18 04:00 76 31 95 01/06/18 04:00 98.6 01/06/18 03:45 76 29 95 01/06/18 03:30 78 30 96 01/06/18 03:15 76 32 94 01/06/18 03:00 80 18 98 01/06/18 02:51 86 24 101/46 (64) 90 01/06/18 02:45 90 34 80 01/06/18 02:30 78 34 96 01/06/18 02:15 78 42 99 18 02:00 80 40 100 18 02:00 80 01/06/18 01:45 74 39 99 01/06/18 01:30 98.8 01/06/18 01:30 76 34 99 01/06/18 01:17 84 23 86/38 (54) 01/06/18 01:15 82 23 01/06/18 01:00 01/06/18 00:30 78 20 70/40 (50) 97 Nasal Cannula 4.00 01/06/18 00:30 78 22 96 Nasal Cannula 4.00 18 23:58 80 20 123/86 (98) 98 Nasal Cannula 4.00 18 23:30 88 20 57/28 (38) 96 Nasal Cannula 4.00 01/05/18 22:10 86 20 103/47 (65) 99 Venturi Mask 40 01/05/18 21:02 84 66/25 (39) 618 21:00 86 64/32 (43) 01/05/18 20:45 94 18 95/57 (70) 98 Venturi Mask 40 01/05/18 20:43 94 18 75/53 (60) 96 Venturi Mask 40 19/18 20:42 92 18 81/33 (49) 97 Venturi Mask 40 01/05/18 19:55 96 18 104/56 (72) 98 Venturi Mask 40 19/18 19:31 97 18 106/51 (69) 98 Venturi Mask 40 19/18 19:30 92 24 98 BiPAP 40 619/18 19:27 99 18 70/34 (46) 98 Venturi Mask 40 619/18 19:20 94 Venturi Mask 40 6/19/18 18:57 97 18 102/69 (80) 99 BiPAP 40 6/19/18 18:15 97 27 107/48 (67) 99 BiPAP 40 619/18 18:15 99.1 97 24 107/48 (67) 99 BiPAP 40 619/18 18:02 99 40 6/19/18 18:00 22 99 BiPAP 40 01/05/18 17:55 22 98 Non-Rebreather 100 01/05/18 17:55 87 24 98 BiPAP 40 01/05/18 17:45 99.3 98 24 95/42 (59) 100 01/05/18 17:15 99 100 Physical Exam GENERAL: Morbidly obese, mild distress SKIN: Multiple skin tears all over the torso and bilateral upper and lower extremities. Dressing applied to left lower thigh where the laceration was repaired in the ED HEAD: Atraumatic. Normocephalic. EYES: Pupils equal and round. No injection or drainage. ENT: Oral cavity is dry airway patent NECK: Trachea midline. No JVD can be appreciated due to body habitus CARDIOVASCULAR: Regular rate and rhythm. No murmur appreciated. RESPIRATORY: Mild expiratory wheezing, mild basilar rales. On 3 L nasal cannula good oxygen saturation GASTROINTESTINAL: Abdomen soft, non-tender, nondistended. Obese MUSCULOSKELETAL: No obvious deformities. Patient has 1+ pitting edema, bilateral chronic venous stasis changes NEUROLOGICAL: Awake and oriented to person, place and time. No focal deficit Laboratory Laboratory Tests Test 01/05/18 17:53 01/05/18 17:55 01/05/18 20:10 01/06/18 00:00 Blood Gas Puncture Site LT RADIAL Blood Gas Patient Temperature 98.6 Blood Gas HCO3 22 Blood Gas Base Excess -1.2 Blood Gas Oxygen Saturation 98 Arterial Blood pH 7.50 Arterial Blood Partial Pressure CO2 28 Arterial Blood Partial Pressure O2 455 Arterial Blood Oxygen Content 20.5 Arterial Blood Carboxyhemoglobin 1.6 Arterial Blood Methemoglobin 1.2 Blood Gas Hemoglobin 14.2 Oxygen Delivery Device BIPAP Blood Gas Ventilator Setting IPAP15/EPAP5 Blood Gas Inspired Oxygen 100 White Blood Count 9.8 Red Blood Count 4.42 Hemoglobin 13.8 Hematocrit 41.1 Mean Corpuscular Volume 92.8 Mean Corpuscular Hemoglobin 31.1 Mean Corpuscular Hemoglobin Concent 33.5 Red Cell Distribution Width 15.1 Platelet Count 165 Mean Platelet Volume 7.4 Neutrophils (%) (Auto) 92.9 Lymphocytes (%) (Auto) 5.1 Monocytes (%) (Auto) 1.7 Eosinophils (%) (Auto) 0.2 Basophils (%) (Auto) 0.1 Neutrophils # (Auto) 9.1 Lymphocytes # (Auto) 0.5 Monocytes # (Auto) 0.2 Eosinophils # (Auto) 0.0 Basophils # (Auto) 0.0 CBC Comment DIFF FINAL Differential Comment Prothrombin Time 10.9 Prothromb Time International Ratio 1.1 Activated Partial Thromboplast Time 25.0 Blood Urea Nitrogen 13 Creatinine 1.10 Random Glucose 137 Total Protein 6.8 Albumin 3.0 Calcium Level 8.6 Alkaline Phosphatase 79 Aspartate Amino Transf (AST/SGOT) 35 Alanine Aminotransferase (ALT/SGPT) 21 Total Bilirubin 1.0 Sodium Level 136 Potassium Level 3.8 Chloride Level 102 Carbon Dioxide Level 27.2 Anion Gap 7 Estimat Glomerular Filtration Rate 64 Lactic Acid Level 2.2 2.0 Troponin I 0.04 B-Type Natriuretic Peptide 84 Thyroid Stimulating Hormone 3rd Gen 5.110 Urine Collection Type CATH Urine Color YELLOW Urine Turbidity CLEAR Urine pH 7.0 Urine Specific [place] 1.020 Urine Protein NEG Urine Glucose (UA) NEG Urine Ketones NEG Urine Occult Blood NEG Urine Nitrite NEG Urine Bilirubin NEG Urine Urobilinogen 0.2 Urine Leukocyte Esterase NEG Urine WBC 0-2 Urine Collection Time 2010 Test 01/06/18 05:00 White Blood Count 7.0 Red Blood Count 4.05 Hemoglobin 12.3 Hematocrit 37.7 Mean Corpuscular Volume 93.1 Mean Corpuscular Hemoglobin 30.5 Mean Corpuscular Hemoglobin Concent 32.8 Red Cell Distribution Width 15.5 Platelet Count 158 Mean Platelet Volume 7.5 Neutrophils (%) (Auto) 86.4 Lymphocytes (%) (Auto) 5.6 Monocytes (%) (Auto) 6.8 Eosinophils (%) (Auto) 0.7 Basophils (%) (Auto) 0.5 Neutrophils # (Auto) 6.1 Lymphocytes # (Auto) 0.4 Monocytes # (Auto) 0.5 Eosinophils # (Auto) 0.0 Basophils # (Auto) 0.0 CBC Comment DIFF FINAL Differential Comment Blood Urea Nitrogen 21 Creatinine 1.70 Random Glucose 119 Total Protein 6.2 Albumin 2.6 Calcium Level 8.2 Alkaline Phosphatase 66 Aspartate Amino Transf (AST/SGOT) 38 Alanine Aminotransferase (ALT/SGPT) 20 Total Bilirubin 1.0 Sodium Level 139 Potassium Level 3.8 Chloride Level 104 Carbon Dioxide Level 26.8 Anion Gap 8 Estimat Glomerular Filtration Rate 39 Date/Time Source Procedure Growth Status 01/05/18 17:55 Blood Peripheral Aerobic Blood Culture Pending Received 01/05/18 17:55 Blood Peripheral Anaerobic Blood Culture Pending Received Result Diagram: 01/06/18 0500 01/06/18 0500 Septic Shock Reassessment Septic shock perfusion: reassessment completed Caprini VTE Risk Assessment Caprini VTE Risk Assessment: Mod/High Risk (score >= 2) Caprini Risk Assessment Model Point Value = 1 Point Value = 2 Point Value = 3 Point Value = 5 Age 41-60 Minor surgery BMI > 25 kg/m2 Swollen legs Varicose veins or History of unexplained or recurrent spontaneous Oral contraceptives or hormone replacement Sepsis (< 1 month) Serious lung disease, including pneumonia (< 1 month) Abnormal pulmonary function Acute myocardial infarction Congestive heart failure (< 1 month) History of inflammatory bowel disease Medical patient at bed rest Age 61-74 Arthroscopic surgery Major open surgery (> 45 min) Laparoscopic surgery (> 45 min) Malignancy Confined to bed (> 72 hours) Immobilizing plaster cast Central venous access Age >= 75 History of VTE Family history of VTE Factor V Leiden Prothrombin [id number] Lupus anticoagulant Anticardiolipin antibodies Elevated serum homocysteine Heparin-induced thrombocytopenia Other congenital or acquired thrombophilia Stroke (< 1 month) Elective arthroplasty Hip, pelvis, or leg fracture Acute spinal cord injury (< 1 month) Prophylaxis Regimen Total Risk Factor Score Risk Level Prophylaxis Regimen 0-1 Low Early ambulation 2 Moderate Order ONE of the following: *Sequential Compression Device (SCD) *Heparin 5000 units SQ BID 3-4 Higher Order ONE of the following medications: *Heparin 5000 units SQ TID *Enoxaparin/Lovenox 40 mg SQ daily (WT < 150 kg, CrCl > 30 mL/min) *Enoxaparin/Lovenox 30 mg SQ daily (WT < 150 kg, CrCl > 10-29 mL/min) *Enoxaparin/Lovenox 30 mg SQ BID (WT < 150 kg, CrCl > 30 mL/min) AND/OR *Sequential Compression Device (SCD) 5 or more Highest Order ONE of the following medications: *Heparin 5000 units SQ TID (Preferred with Epidurals) *Enoxaparin/Lovenox 40 mg SQ daily (WT < 150 kg, CrCl > 30 mL/min) *Enoxaparin/Lovenox 30 mg SQ daily (WT < 150 kg, CrCl > 10-29 mL/min) *Enoxaparin/Lovenox 30 mg SQ BID (WT < 150 kg, CrCl > 30 mL/min) AND *Sequential Compression Device (SCD) Assessment and Plan Assessment and Plan NEURO: Altered mental status -Altered mental status most likely from metabolic encephalopathy, now resolved -Most likely secondary to sepsis, CT of the head negative. Hold hydrocodone RESP: Probable pneumonia COPD History of DVT PE -Nasal cannula oxygen to keep saturation more than 90% -DuoNeb every 6 hours scheduled and as needed -BiPAP as needed -IV Rocephin and azithromycin -Sputum culture if available CV: Chronic bilateral pedal edema -Normal saline IV fluids at 50 mL/h for 24 hour -Await 2d echo -Hold losartan, continue metoprolol and Lipitor -Continue Eliquis -Normal echo in 2006 GI: -Heart healthy diet : Acute kidney injury -Monitor renal function closely. Creatinine 1.7 -Normal saline 50 mL/h for 24 hours -No further IV Lasix. ID: Probable sepsis Probable pneumonia -Received 1 dose of IV vancomycin and Rocephin in the ED. -Continue IV Rocephin and IV azithromycin. -Follow-up on blood cultures. Sputum culture if available HEME: -Monitor CBC, CMP -Continue Eliquis ENDO: -Continue levothyroxine PROPH: -Eliquis will provide DVT prophylaxis. Avoid SCDs and teds due to severe skin tear -Start p.o. diet no indication for GI prophylaxis LINES: -Utilize peripheral IVs, central line if needed PT/OT consult on Wound care consulted for multiple skin tears Level 3 H&P Consult hospitalist to assume care in am Code Status Full Discussed Condition With Patient and bedside RN Rosamaria Llamas MD Jan 06, 2018 06:39
[2018-01-06] MEDS: RESP: ALBUTEROL 2.5 MG/IPRATROPIUM 0.5 MG NEB (SCH) NEB ×4 (08:09→21:37)
[2018-01-06] MEDS: ACETAMINOPHEN 325 MG TAB PO PRN ×2 (08:28→16:34)
[2018-01-06] MEDS: ALLOPURINOL 300 MG TAB PO SCH (08:29)
[2018-01-06] MEDS: AZITHROMYCIN INJ 500 MG in SODIUM CHLOR 0.9% 250 ML INJ 250 ML IV SCH (08:30)
[2018-01-06] MEDS: POTASSIUM CHLORIDE 25 MEQ EFFERVESCENT TAB PO SCH ×2 (08:40→21:45)
[2018-01-06] MEDS: DOCUSATE SODIUM 50 MG/SENNA 8.6 MG TAB PO SCH ×2 (08:42→21:45)
[2018-01-06] MEDS: METOPROLOL TARTRATE 25 MG TAB PO SCH ×2 (08:43→21:45)
[2018-01-06] MEDS: APIXABAN 2.5 MG TABLET PO SCH ×2 (08:43→21:45)
[2018-01-06] MEDS: SODIUM CHLOR 0.9% 1000 ML INJ 1,000 ML IV SCH (08:51)
[2018-01-06] MEDS ORDERED: LOSARTAN 25 MG TAB PO SCH (09:00)
[2018-01-06] MEDS: SODIUM CHLORIDE 0.9% FLUSH 10 ML FLUSH IV FLUSH SCH ×2 (09:00→21:00)
[2018-01-06] MEDS ORDERED: MAGNESIUM OXIDE 400 MG TAB PO SCH (11:00)
[2018-01-06] MEDS ORDERED: MORPHINE SULFATE 2 MG/ML SYRINGE IV PUSH PRN (15:30)
--- NOTE | 2018-01-06 15:43 | ECHRPT ---
Indication: HEART FAILURE CONCLUSIONS The left ventricular systolic function is normal with an estimated ejection fraction in the range of 60-65%. Normal left ventricular size. Wall thickness is normal. No regional wall motion abnormalities are present. Mild mitral annular calcification. Moderate thickening of the aortic valve leaflets. Mild aortic valve stenosis. There is trace tricuspid valve regurgitation. The estimated pulmonary arterial pressure is 31 mmHg. BP: 141 / 46 HR: 77 Rhythm: Sinus MEASUREMENTS (Male / Female) Normal Values Technical Quality:Fair 2D ECHO LV Diastolic Diameter PLAX 4.0 cm 4.2 - 5.9 / 3.9 - 5.3 cm LV Systolic Diameter PLAX 2.9 cm IVS Diastolic Thickness 1.1 cm 0.6 - 1.0 / 0.6 - 0.9 cm LVPW Diastolic Thickness 1.1 cm 0.6 - 1.0 / 0.6 - 0.9 cm LV Relative Wall Thickness 0.6 LVOT Diameter 2.1 cm M-MODE Aortic Root Diameter MM 2.4 cm AV Cusp Separation MM 1.0 cm DOPPLER AV Peak Velocity 335.0 cm/s AV Peak Gradient 44.9 mmHg AV Mean Gradient 24.5 mmHg AV Velocity Time Integral 63.6 cm LVOT Peak Velocity 90.2 cm/s LVOT Peak Gradient 3.3 mmHg LVOT Velocity Time Integral 19.2 cm AV Area Cont Eq vti 1.0 cm AV Area Cont Eq pk 0.9 cm MV Area PHT 3.2 cm Mitral E Point Velocity 75.0 cm/s Mitral A Point Velocity 58.2 cm/s Mitral E to A Ratio 1.3 LV E' Lateral Velocity 5.9 cm/s Mitral E to LV E' Lateral Ratio 12.8 LV E' Septal Velocity 10.7 cm/s Mitral E to LV E' Septal Ratio 7.0 TR Peak Velocity 229.0 cm/s TR Peak Gradient 21.0 mmHg Right Atrial Pressure 10.0 mmHg Pulmonary Artery Systolic Pressu 31.0 mmHg Right Ventricular Systolic Press 31.0 mmHg FINDINGS LEFT VENTRICLE The left ventricular systolic function is normal with an estimated ejection fraction in the range of 60-65%. Normal left ventricular size. Wall thickness is normal. No regional wall motion abnormalities are present. RIGHT VENTRICLE Normal right ventricular size and systolic function. LEFT ATRIUM The left atrial size is normal. RIGHT ATRIUM The right atrial size is normal. ATRIAL SEPTUM Normal atrial septal thickness without atrial level shunting by limited color doppler interrogation. AORTA The aortic root and proximal ascending aorta are normal in size on limited imaging. MITRAL VALVE Structurally normal mitral valve. Mild mitral annular calcification. AORTIC VALVE Trileaflet aortic valve. Moderate thickening of the aortic valve leaflets. Mild aortic valve stenosis. Aortic valve area is 1 cm. Aortic valve mean gradient is 24.5 mmHg. TRICUSPID VALVE Structurally normal tricuspid valve. There is trace tricuspid valve regurgitation. The estimated pulmonary arterial pressure is 31 mmHg. PULMONARY VALVE No pulmonary valve regurgitation or stenosis. VESSELS The inferior vena cava is normal in size. PERICARDIUM No pericardial effusion. Jeancarlos Mayen MD, FACC (Electronically Signed) Final Date:06 January 2018 15:42
--- NOTE | 2018-01-06 15:48 | RADRPT ---
EXAM DATE: 01/06/2018 3:41 PM EDT AGE/SEX: 82 years / Male INDICATIONS: Acute kidney injury. CLINICAL DATA: This is the patient's initial encounter. Patient reports that signs and symptoms have been present for 1 day and indicates a pain score of 4/10. MEDICAL/SURGICAL HISTORY: Hypothyroidism. Hypertension. Hypercholesterolemia. Congestive hea rt failure. Myocardial infarction. Coronary artery disease. Anticoagulant therapy. COPD. GERD. Renal failure. Arthritis. GOUT. Anxiety. Skin cancer. Pulmonary embolism. . Bilateral cataract surgery. Ca rdiac catheterization. Skin cancer removed. Left ankle surgery. Left knee debridement. COMPARISON: No prior exams available for comparison. MEASUREMENTS: Right Kidney:__11.2 x 6.5 x 5.3 cm Left Kidney:__11.7 x 5.5 x 6.3 cm FINDINGS: The kidneys demonstrate normal echogenicity without evidence of hydronephrosis. The bladder is completely decompressed. CONCLUSION: Negative renal ultrasound examination. Electronically signed by: Farhad Zarate MD 01/06/2018 3:47 PM EDT
--- NOTE | 2018-01-06 17:32 | PD.WCN.NOT ---
Wound Consult Description: Wound care consult ordered by for wound management. Communicated with: Ary CHU PADDY, Recommendation: 1. Reposition patient every 2 hours for comfort and offloading.Using draw sheet only do not pull on patient skin. 2. Cleanse All open areas with normal saline pat dry. 3. Leave Versatel on upper extremities, left lower extremity ,Torso,upper back in place x7 days may change secondary dressing (ABD,soft rolled gauze,Mario wrap) as needed for exudate management/dislodgement. 4. Apply Remedy antifungal powder to pannus,groin,breast skin folds BID or as needed with pericare. 5. Encrust Torso skin tears BID (Encrusting 1.Apply thin even layer of stoma/ antifungal powder to wound base ,spray with Cavilon skin prep repeat x2 ) 6. Ensure patient is wearing loose sleeves on upper extremities when working with therapy. Additional Information: Patient was seen today by fiction writer and Ary CHU PADDY for wound management.Patient alert and oriented x 4 resting in bed upon writers arrival with present at bedside answering most questions.Multiple dressings removed from bilateral upper extremities and left lower extremity after soaking dressing for ~1min mild difficulty with removing dressing due to patients very friable skin and multiple skin tears.Timber Cruiser was able to visualize all extremities.Patient has partial degloved /skin tear to right upper extremity bicep/axillary area.Timber Cruiser was able to reapproximated skin flat and place Versatel in thin strip to hold approximated skin .Timber Cruiser reapproximated all skin tear in which still had skin flat attached ~85% of all injuries .Patient has moisture fungal partial thickness skin loss to pannus,breast,groin skin folds.Timber Cruiser cleansed all skin tears,open areas with copious amounts of normals saba and pat dry.Versatel Applied to bilateral upper extremities,Torso Upper back, skin prep applied and covered with ABD secured with soft rolled gauze mario wraps.Timber Cruiser encrusted patient superficial skin tears to chest.Remedy antifungal powder applied to pannus,breast and groin skin folds in even layer.Patients was repositioned using log roll technique with draw sheet.Patient noted to have moisture reddened intra gluteal cleft cleansed with remedy soft cloth barrier wipes and antifungal powder applied for moisture protection.Linens changed and patient placed on moisture wicking UltraSorb under pads and offloaded to left side. was able to verbalize understanding on wound care and moisture control.No further questions or concerns upon writers departure. Duarte Carnes [facility] Jan 06, 2018 17:32
[2018-01-06] MEDS: cefTRIAXone INJ 1,000 MG in SODIUM CHLORIDE 0.9% INJ 100 ML IV SCH (21:45)
[2018-01-06] MEDS: ATORVASTATIN 40 MG TAB PO SCH ×2 (21:53→21:54)
[2018-01-07] VITALS (27 sets, daily range): BP systolic 80–153; BP diastolic 38–73; PULSE 66–90; RESP 15–34; TEMP 97.8–98.7; O2SAT 94–99
[2018-01-07] MEDS: RESP: ALBUTEROL 2.5 MG/IPRATROPIUM 0.5 MG NEB (SCH) NEB ×4 (03:23→21:18)
[2018-01-07 05:13] LABS: CHLORIDE 106 MEQ/L (98-107); SODIUM (NA) 139 MEQ/L (136-145)
[2018-01-07 05:17] LABS: CALCIUM 8.3 MG/DL (8.5-10.1)
[2018-01-07] MEDS: LEVOTHYROXINE SODIUM 88 MCG TAB PO SCH (05:17)
[2018-01-07 05:18] LABS: ALBUMIN 2.4 GM/DL (3.4-5.0); BICARBONATE 23.6 MEQ/L (21.0-32.0); BLOOD UREA NITROGEN 13 MG/DL (7-18); GLUCOSE,RANDOM 84 MG/DL (74-106)
[2018-01-07 05:21] LABS: ALT (GPT) 26 U/L (12-78); AST (GOT) 47 U/L (15-37); GLOMERULAR FILTRATION RATE 81 ML/MIN (>89)
[2018-01-07 05:22] LABS: TOTAL BILIRUBIN ADULT 0.8 MG/DL (0.2-1.0)
[2018-01-07 05:24] LABS: ALKALINE PHOSPHATASE 60 U/L (45-117)
--- NOTE | 2018-01-07 06:31 | RADRPT ---
EXAM DATE: 01/07/2018 5:16 AM EDT AGE/SEX: 82 years / Male INDICATIONS: Shortness of breath CLINICAL DATA: This is the patient's subsequent encounter. Patient reports that signs and symptoms h ave been present for 2 days and indicates a pain score of 0/10. MEDICAL/SURGICAL HISTORY: . Hypothyroidism. Hypertension. Hypercholesterolemia. Congestive hear t failure. Myocardial infarction. Coronary artery disease. COPD. GERD. Renal failure. Arthritis. GOUT . Skin cancer. Pulmonary embolism. . Cardiac catheterization. COMPARISON: [facility], CHEST SINGLE AP, 01/05/2018. . FINDINGS: A single AP view of the chest demonstrates the lungs to be symmetrically aerated without evidence of mass, infiltrate or effusion. Chronic diffuse interstitial prominence throughout the lungs. The cardi omediastinal contours are unremarkable. Osseous structures are intact. CONCLUSION: Diffuse interstitial prominence is unchanged. Aorta remains quite tortuous. Electronically signed by: Nick Booth MD 01/07/2018 6:30 AM EDT
[2018-01-07] MEDS: POTASSIUM CHLORIDE 25 MEQ EFFERVESCENT TAB PO SCH (09:44)
[2018-01-07] MEDS: APIXABAN 2.5 MG TABLET PO SCH ×2 (09:45→20:21)
[2018-01-07] MEDS: AZITHROMYCIN INJ 500 MG in SODIUM CHLOR 0.9% 250 ML INJ 250 ML IV SCH (09:45)
[2018-01-07] MEDS: DOCUSATE SODIUM 50 MG/SENNA 8.6 MG TAB PO SCH ×2 (09:45→20:21)
[2018-01-07] MEDS: METOPROLOL TARTRATE 25 MG TAB PO SCH (09:45)
[2018-01-07] MEDS: ALLOPURINOL 300 MG TAB PO SCH (09:45)
[2018-01-07] MEDS: SODIUM CHLORIDE 0.9% FLUSH 10 ML FLUSH IV FLUSH SCH ×2 (09:46→20:21)
[2018-01-07] MEDS: SODIUM CHLOR 0.9% 1000 ML INJ 1,000 ML IV SCH (09:49)
[2018-01-07] MEDS ORDERED: VANCOMYCIN INJ 1,000 MG in SODIUM CHLOR 0.9% 250 ML INJ 250 ML IV ONE (10:15)
--- NOTE | 2018-01-07 12:01 | HHI.PR ---
Subjective Remarks Transfer of care from critical care management. 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 He was able to take oral medications this morning. Denies pain, does complain of feeling hot. Stable on 2L NC. Had 2500 ml UOP over past 24 hours. Cr improved to baseline. 1 blood culture returned gram + cocci in pairs and clusters. Blood pressures running lower this morning. Discussed with patient's and RN at bedside. Objective Vitals Vital Signs Date Time Temp Pulse Resp B/P (MAP) Pulse Ox O2 Delivery O2 Flow Rate FiO2 01/07/18 10:00 78 21 125/63 (83) 96 01/07/18 09:00 76 18 98/56 (70) 98 01/07/18 08:11 97 Nasal Cannula 2.00 01/07/18 08:06 80 34 91/54 (66) 96 01/07/18 08:00 76 26 80/39 (53) 97 01/07/18 07:00 72 18 118/50 (72) 98 01/07/18 06:00 77 01/07/18 06:00 78 17 120/38 (65) 96 01/07/18 05:00 82 25 91/67 (75) 97 01/07/18 04:00 98.5 74 20 107/50 (69) 98 01/07/18 04:00 72 01/07/18 03:00 70 24 153/64 (93) 99 01/07/18 02:00 70 22 134/73 (93) 98 01/07/18 02:00 70 01/07/18 01:00 70 23 128/53 (78) 97 01/07/18 00:00 98.4 68 16 117/53 (74) 98 01/07/18 00:00 68 01/06/18 23:00 72 18 104/65 (78) 100 01/06/18 22:00 78 16 104/79 (87) 94 01/06/18 22:00 78 01/06/18 21:35 94 Nasal Cannula 2.00 01/06/18 21:00 70 17 126/48 (74) 95 01/06/18 20:00 98.6 74 24 156/76 (102) 97 01/06/18 20:00 74 01/06/18 19:00 72 25 141/44 (76) 95 01/06/18 18:26 80 01/06/18 17:00 74 20 144/73 (96) 96 01/06/18 17:00 74 01/06/18 16:04 68 17 145/79 (101) 97 01/06/18 16:00 98.8 01/06/18 16:00 70 01/06/18 15:00 68 01/06/18 15:00 68 25 147/69 (95) 94 01/06/18 14:00 68 18 105/49 (67) 98 01/06/18 14:00 68 01/06/18 13:00 66 01/06/18 13:00 66 22 125/57 (79) 98 01/06/18 12:00 78 27 111/58 (75) 96 01/06/18 12:00 98.4 01/06/18 12:00 78 01/06/18 11:35 70 23 106/59 (75) 96 01/07/18 01/07/18 01/08/18 15:00 23:00 07:00 Intake Total 600 ml Balance 600 ml IV Total 600 ml Result Diagram: 01/06/18 0500 01/07/18 0437 Objective Remarks GENERAL: Morbidly obese elderly male laying in bed in no acute distress. SKIN: Diffuse ecchymoses. Arms wrapped with gauze and secured with davida bandage b /l. Warm and dry. HEAD: Normocephalic. EYES: No scleral icterus. No injection or drainage. NECK: Supple, trachea midline. No JVD or lymphadenopathy. CARDIOVASCULAR: Regular rate and rhythm without murmurs, gallops, or rubs. RESPIRATORY: Breath sounds equal bilaterally. No accessory muscle use. GASTROINTESTINAL: Abdomen soft, non-tender, nondistended. EXTREMITIES: 2+ edema lower extremities. NEUROLOGICAL: Somnolent, does awaken to voice briefly, does not follow commands well, moves both upper extremities. A/P Problem List: (1) Pneumonia (2) Sepsis ICD Codes: A41.9 - Sepsis, unspecified organism (3) Respiratory insufficiency ICD Codes: R06.89 - Other abnormalities of breathing (4) LEATHA (acute kidney injury) ICD Codes: N17.9 - Acute kidney failure, unspecified (5) Hypoxia ICD Codes: R09.02 - Hypoxemia Status: Acute (6) Weakness ICD Codes: R53.1 - Weakness Status: Acute (7) COPD (chronic obstructive pulmonary disease) ICD Codes: J44.9 - Chronic obstructive pulmonary disease, unspecified (8) CAD (coronary artery disease) ICD Codes: I25.10 - Atherosclerotic heart disease of [place] coronary artery without angina pectoris (9) History of DVT and PE Assessment and Plan 82 yo male admitted from home after fall at home. Presented with AMS, acute resp failure, mild pulmonary edema. Developed hypotension and was admitted to intensivists for 1 day, now transferred to my care. -Probable sepsis - 1 BC positive for GPC. Repeat 2 BC. Added vancomycin IV. -AMS/ metabolic encephalopathy--Most likely secondary to sepsis, CT of the head negative. Hold hydrocodone, tylenol as needed for pain. -Respiratory insufficiency - improved now stable on 2 L NC. Due to combination of pulmonary interstitial edema and possible underlying CAP, COPD, obesity hypoventilation. He also has history of restrictive lung disease, possible sleep apnea (as per PCP's notes). History of 40 pack year tobacco. Apparently has portable O2 at home in the past. Continue rocephin and zithromax. Avoid fluid overload. IVF DC'ed. May need to restart them if he does not improve oral intake. He does have history of pulmonary edema in the past, this is likely diastolic CHF. Echo this admission shows preserved EF, no significant valvular disease. -Nasal cannula oxygen to keep saturation more than 90% -DuoNeb every 6 hours scheduled and as needed -BiPAP as needed -IV Rocephin and azithromycin Chronic bilateral pedal edema, venous insufficiency, morbid obesity. 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 Acute kidney injury on CKD stage 2- resolved, cr back to normal. Gout - cont allopurinol. DVT px - eliquis. Hypothyroidism -Continue levothyroxine Generalized weakness - Skin tears severe - continue wound care recommendations as per nursing. Hx of DVT and PE - continue eliquis 2.5 mg BID. FULL CODE status - discussed with at bedside and per her they have had discussions and he wants aggressive care. However he would not want to remain on life support if it was considered futile. Will consult palliative care for support and additional clarification of goals. Minal Bianchi MD Jan 07, 2018 12:01
[2018-01-07] MEDS: LACTOBACILLUS ACIDOPHILUS TAB PO SCH ×2 (13:18→17:54)
[2018-01-07] MEDS: ATORVASTATIN 40 MG TAB PO SCH (20:21)
[2018-01-07] MEDS: cefTRIAXone INJ 1,000 MG in SODIUM CHLORIDE 0.9% INJ 100 ML IV SCH (20:23)
[2018-01-08] VITALS (20 sets, daily range): BP systolic 98–127; BP diastolic 33–76; PULSE 72–90; RESP 14–21; TEMP 97.3–99; O2SAT 93–97
[2018-01-08] MEDS: RESP: ALBUTEROL 2.5 MG/IPRATROPIUM 0.5 MG NEB (SCH) NEB ×4 (03:18→20:40)
[2018-01-08 04:49] LABS: AUTOMATED NEUTROPHIL # 3.5 TH/MM3 (1.8-7.7); BASOPHIL % 0.6 % (0.0-2.0); EOSINOPHIL # 0.1 TH/MM3 (0-0.4); HEMATOCRIT 35.7 % (39.0-51.0); HEMOGLOBIN 11.6 GM/DL (13.0-17.0); LYMPH % 15.6 % (9.0-44.0); LYMPHOCYTE # 0.8 TH/MM3 (1.0-4.8); MEAN CELL VOLUME 92.8 FL (80.0-100.0); MEAN CORPUSCULAR HEMOGLOBIN 30.2 PG (27.0-34.0); MEAN CORPUSCULAR HGB CONC 32.5 % (32.0-36.0); MEAN PLATELET VOLUME 7.4 FL (7.0-11.0); MONO % 12.6 % (0.0-8.0); MONOCYTE # 0.6 TH/MM3 (0-0.9); NEUT % 68.2 % (16.0-70.0); PLATELET COUNT 141 TH/MM3 (150-450); RED BLOOD COUNT 3.85 MIL/MM3 (4.50-5.90); RED CELL DISTRIBUTION WIDTH 15.4 % (11.6-17.2)
[2018-01-08 05:02] LABS: CHLORIDE 102 MEQ/L (98-107); SODIUM (NA) 135 MEQ/L (136-145)
[2018-01-08 05:04] LABS: ALBUMIN 2.3 GM/DL (3.4-5.0); BICARBONATE 24.7 MEQ/L (21.0-32.0); CALCIUM 8.1 MG/DL (8.5-10.1); GLUCOSE,RANDOM 91 MG/DL (74-106)
[2018-01-08 05:05] LABS: BLOOD UREA NITROGEN 10 MG/DL (7-18)
[2018-01-08 05:08] LABS: ALT (GPT) 25 U/L (12-78); AST (GOT) 46 U/L (15-37); CREATININE 0.81 MG/DL (0.60-1.30); GLOMERULAR FILTRATION RATE 91 ML/MIN (>89)
[2018-01-08 05:10] LABS: ALKALINE PHOSPHATASE 59 U/L (45-117)
[2018-01-08] MEDS: LEVOTHYROXINE SODIUM 88 MCG TAB PO SCH (06:00)
[2018-01-08] MEDS: DOCUSATE SODIUM 50 MG/SENNA 8.6 MG TAB PO SCH ×2 (08:30→21:10)
[2018-01-08] MEDS: AZITHROMYCIN INJ 500 MG in SODIUM CHLOR 0.9% 250 ML INJ 250 ML IV SCH (08:30)
[2018-01-08] MEDS: ALLOPURINOL 300 MG TAB PO SCH (08:30)
[2018-01-08] MEDS: LACTOBACILLUS ACIDOPHILUS TAB PO SCH ×3 (08:30→18:46)
[2018-01-08] MEDS: APIXABAN 2.5 MG TABLET PO SCH ×2 (08:31→21:10)
[2018-01-08] MEDS: SODIUM CHLORIDE 0.9% FLUSH 10 ML FLUSH IV FLUSH SCH ×2 (08:34→20:20)
--- NOTE | 2018-01-08 12:06 | PD.CONS ---
Consult Service Palliative Care Consult Requested By Dr. Bianchi . Primary Care Physician Non-Staff Reason for Consultation a. To assist with evaluation and management of symptoms including: Weakness , dyspnea b. To assist medical decision maker(s) with: better understanding of current medical conditions; weighing benefits/burdens of medical treatment options; making medical treatment decisions. HPI History of Present Illness This is a morbidly obese 82-year-old male who was at home with his when he began walking to the bathroom with his 4 wheeled walker very rapidly. When he got to the bathroom his legs gave out beneath him and he fell to the floor, without head trauma. As the patient is 298 pounds, the was unable to assist him back to his feet and called [facility]. When the paramedics tried to assist him up by his arms he sustained skin tears in both upper arms in addition to the left leg skin tear he had received during the fall, which required sutures upon admission to the ED. History states that he has congestive heart failure, however 2D echocardiogram shows a left ventricular systolic function in the normal range of 60-65% with normal left ventricular size, no regional wall motion abnormalities, mild aortic stenosis, trace tricuspid regurgitation and pulmonary artery pressure of 31 mmHg, possibly indicating heart failure with preserved ejection fraction. Presenting B natruretic peptide was normal at 84. Presenting troponin was 0.04. Presenting vital signs showed temperature 99.3, pulse 98, respiratory rate 24, blood pressure 95/42, oxygen saturation 100% on 100% FiO2. Presenting labs showed WBC 9.8, hemoglobin 13.8, hematocrit 41.1, platelets 165, sodium 136 , potassium 3.8, BUN 13, creatinine 1.10, random glucose 137, AST 35, ALT 21, alkaline phosphatase 79, albumin 3.0, TSH 5.110. ABG showed pH 7.50, PCO2 28, PaO2 455, bicarbonate 22, base excess -1.2, saturation 98% on 100% FiO2 via BiPAP. Urinalysis was negative. Blood cultures were drawn in the ED, which today show gram-positive cocci. Blood cultures were repeated 01/[address] of the head on admission showed senescent changes without acute intracranial abnormality. Chest x-ray showed cardiomegaly with a slightly positive fluid balance. Patient was somnolent in the ED and placed on BiPAP. ABG showed respiratory alkalosis without hypercarbia. He was evaluated by the [facility] service due to meeting sirs criteria of heart rate over 90, respiratory rate greater than 20 or PaCO2 less than 32, sepsis criteria of infection source suspected or known and severe sepsis criteria of lactate greater than 2. He was subsequently weaned off of BiPAP but preemptively treated with Rocephin and azithromycin for suspected community-acquired pneumonia and sepsis. He also received 1 dose of vancomycin. On evaluation this is a morbidly obese male with 3 of 4 extremities Mario bandaged with ecchymosis and skin tears. He is sleeping, on nasal cannula at 2 L, saturating adequately. He arouses to voice and answers appropriately. He is very lethargic and falls back asleep easily. Wound care is following. His is at bedside and very involved in his care. She provided most of the history, however the patient intermittently aroused and agreed with her statements. . Function/Cognitive Trajectory His states that he is very sedentary and generally sits in his chair playing games on his iPad, watching TV and doing word puzzles. She states that they used to be very active, out visiting friends, going out to dinner, but now they simply sit in the house. He has both 4 wheeled walker and a 2 wheeled walker, a power chair, wheelchair and is able to ambulate through the house with his 4 wheeled walker but is having increasing numbers of falls and becoming more sedentary. . Review of Systems ROS Limitations: Clinical Condition Constitutional: COMPLAINS OF: Fatigue, Generalized weakness, DENIES: Diaphoretic episodes, Fever, Weight gain, Weight loss, Chills, Dizziness, Change in appetite, Night Sweats, Pain, Sleep problems Endocrine: DENIES: Heat/cold intolerance, Polydipsia, Polyuria, Polyphagia Eyes: DENIES: Blurred vision, Diplopia, Eye inflammation, Eye pain, Vision loss , Photosensitivity, Double Vision, Blind spots Ears, nose, mouth, throat: DENIES: Tinnitus, Hearing loss, Vertigo, Nasal discharge, Oral lesions, Throat pain, Hoarseness, Ear Pain, Running Nose, Epistaxis, Sinus Pain, Toothache, Odynophagia Respiratory: COMPLAINS OF: Shortness of breath, DENIES: Apneas, Cough, Snoring , Wheezing, Hemoptysis, Sputum production Cardiovascular: COMPLAINS OF: Dyspnea on Exertion, Lower Extremity Edema, DENIES: Chest pain, Palpitations, Syncope, PND, Orthopnea, Claudication Gastrointestinal: COMPLAINS OF: Diarrhea (With some stool incontinence) Genitourinary: DENIES: Sexual dysfunction, Urinary frequency, Urinary incontinence, Urgency, Hematuria, Dysuria, Nocturia, Penile Discharge, Testicular Pain, Testicular Swelling, Hesitancy, Dribbling, Decreased stream Musculoskeletal: COMPLAINS OF: Decreased range of motion, DENIES: Joint pain, Muscle aches, Stiffness, Joint Swelling, Back pain, Neck pain Integumentary: COMPLAINS OF: Non-healing sores (Massive areas of ecchymosis and skin tears on bilateral upper arms and left leg), DENIES: Abnormal pigmentation, Nail changes, Pruritus, Rash, Nodules, Tumors, Excessive dryness Hematologic/Lymphatics: COMPLAINS OF: Bruising, DENIES: Lymphadenopathy, Prolonged bleed w/ proced, History of transfusions Immunologic/Allergic: DENIES: Eczema, Urticaria Neurologic: COMPLAINS OF: Poor Balance, DENIES: Abnormal gait, Headache, Localized weakness, Paresthesias, Seizures, Speech Problems, Tremor, Change in smell or taste Psychiatric: DENIES: Anxiety, Confusion, Mood changes, Depression, Hallucinations, Agitation, Suicidal Ideation, Homicidal Ideation, Delusions, Anhedonia Past Family Social History Coded Allergies: potassium chloride (Verified Adverse Reaction, Severe, Nausea/Vomiting, ) pt' states that the effervesent version of potasium chloride makes pt feel nauseated/vomiting and lethargic. She states that pt needs to take pill form of potassium chloride ONLY. Past Medical History Coronary artery disease COPD/emphysema History of DVT PE Morbid obesity Obstructive sleep apnea BPH Basal cell cancer of the ear Hyperlipidemia Hypothyroidism Chronic fungal/Mariella rash in groin folds Past Surgical History Left knee wound debridement and hematoma evacuation Bilateral cataract surgery TURP Bilateral ankle fusions Trigger finger release Triple arthrodesis left foot . Reported Medications Reported Meds & Active Scripts Active Reported Tylenol (Acetaminophen) 325 Mg Tab 650 Mg PO HS PRN Eliquis (Apixaban) 2.5 Mg Tab 2.5 Mg PO BID Potassium Chloride ER (Potassium Chloride) 10 Meq Tab 20 Meq PO DAILY Levothyroxine (Levothyroxine Sodium) 88 Mcg Tab 88 Mcg PO DAILY Allopurinol 300 Mg Tab 300 Mg PO DAILY Atorvastatin (Atorvastatin Calcium) 40 Mg Tab 40 Mg PO HS Metoprolol Tartrate 25 Mg Tab 25 Mg PO BID Magnesium Oxide 400 Mg Tab 400 Mg PO DAILY Losartan (Losartan Potassium) 25 Mg Tab 25 Mg PO DAILY Hydrocodone-Acetaminophen 10-325 mg Tab 1 Tab PO Q6H PRN [place] ([place]) 450 Mg Cap 450 Mg PO DAILY D3 Super Strength (Cholecalciferol) 2,000 Unit Cap 2,000 Units PO DAILY . Current Medications Medications (Trade) Dose Ordered Sig/Paty Route Start Time Stop Time Status Last Admin (NS Flush) 2 ml UNSCH PRN IV FLUSH 01/05/18 20:45 (NS Flush) 2 ml BID IV FLUSH 01/05/18 21:00 01/07/18 20:21 (Tylenol) 650 mg Q4H PRN PO 01/05/18 20:45 01/06/18 16:34 (Zofran Inj) 4 mg Q6H PRN IVP 01/05/18 20:45 01/07/18 09:50 (Narcan Inj) 0.4 mg UNSCH PRN IV PUSH 01/05/18 20:45 (Abby-Colace) 1 tab BID PO 01/05/18 21:00 01/08/18 08:30 (Milk Of Magnesia Liq) 30 ml Q12H PRN PO 01/05/18 20:45 (Senokot) 17.2 mg Q12H PRN PO 01/05/18 20:45 (Dulcolax Supp) 10 mg DAILY PRN RECTAL 01/05/18 20:45 (Lactulose Liq) 30 ml DAILY PRN PO 01/05/18 20:45 (Zyloprim) 300 mg DAILY PO 01/06/18 09:00 01/08/18 08:30 (Eliquis) 2.5 mg BID PO 01/05/18 21:00 01/08/18 08:31 (Lipitor) 40 mg HS PO 01/05/18 21:00 01/07/18 20:21 (Synthroid) 88 mcg DAILY@0600 PO 01/06/18 06:00 01/08/18 06:00 (Cozaar) 25 mg DAILY PO 01/06/18 09:00 Future Hold 01/06/18 08:43 (Mag-Ox) 400 mg DAILY@1100 PO 01/06/18 11:00 Future Hold 01/06/18 12:25 (Lopressor) 25 mg BID PO 01/05/18 21:00 Future Hold 01/07/18 09:45 (Duoneb Neb) 1 ampule Q4HR NEB PRN NEB 01/05/18 21:00 Ceftriaxone Sodium 1000 mg/ Sodium Chloride 100 ml @ 200 mls/hr Q24H IV 01/05/18 22:00 01/07/18 20:23 Azithromycin 500 mg/Sodium Chloride 250 ml @ 250 mls/hr Q24H IV 01/06/18 08:00 01/08/18 08:30 (Duoneb Neb) 1 ampule Q6HR NEB NEB 01/06/18 06:30 01/08/18 09:28 (Lactinex) 1 tab TID PO 01/07/18 13:00 01/08/18 08:30 Family History His father at age 28 from a cardiac disorder not further specified. His mother at 85 of natural causes, his sister at 84 of natural causes. . Substance Use Tobacco: Smoked 2 packs per day for approximately 30 years quit at age 44. Alcohol: Drank beer heavily up until age 44 and no longer uses any alcohol. Prescription med abuse: None noted. Illicits: None noted. . Psychosocial History He was born in [place], [place] and moved to [place], [place] at the age of 4. After his father at the young age of 27, his mother remarried and send him to school for a short time. He joined the [employer] at age 16 and left after 2 years at the urging of his first . After his divorce she attempted to reenlist but was unable to due to flat feet. 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 He remarried his current and they had 3 children, Narendra (Taisha Doran, who resides with his , Cortney , in [place], daughter Nilda Cee who resides in [place] and son Ken (Jr Ryann. who travels the world extensively as a integrity manager. . Spiritual/Cultural Factors Raised as a Anabaptist, converted to Pentecostal some time ago. Not active and not an important concept to him at this time. . Living Will: Copy in medical record Health Care Surrogate: Copy in medical record Durable Power of Solution Professional: Completed, but not made available Date completed: August 13, 2000 . Health Care Surrogate(s): , Madina Doran . Documented care wishes: Standard living will verbiage. . Today's verbally stated goals: At this time the family would like to continue full aggressive goals to include full resuscitation. The patient would accept short-term ventilation but would not want to be kept alive on machines long-term. . Family/friends goals: 's goals are as above. . Ethical and Legal Issues None noted. . Physical Exam Vital Signs Date Time Temp Pulse Resp B/P (MAP) Pulse Ox O2 Delivery O2 Flow Rate FiO2 01/08/18 09:28 97 Nasal Cannula 2.00 01/08/18 08:00 80 01/08/18 08:00 97.3 82 17 127/61 (83) 93 01/08/18 07:27 98.7 01/08/18 07:00 Nasal Cannula 2.00 01/08/18 06:00 84 18 93 01/08/18 05:00 84 15 95 01/08/18 04:00 84 17 95 01/08/18 04:00 84 17 95 01/08/18 04:00 76 01/08/18 03:00 88 19 93 01/08/18 02:49 82 16 119/63 (81) 94 01/08/18 02:00 84 15 95 01/08/18 01:00 90 19 115/33 (60) 95 01/08/18 00:05 88 17 100/49 (66) 95 01/08/18 00:00 86 18 93 01/08/18 00:00 72 01/08/18 00:00 86 18 93 01/07/18 23:00 90 19 108/46 (66) 96 01/07/18 22:00 88 17 92/65 (74) 97 01/07/18 21:18 99 Nasal Cannula 2.00 01/07/18 21:00 80 23 120/59 (79) 98 01/07/18 20:00 98.7 84 26 121/45 (70) 94 01/07/18 20:00 80 01/07/18 20:00 Nasal Cannula 2.00 01/07/18 19:00 76 15 132/63 (86) 95 01/07/18 18:00 78 01/07/18 18:00 78 19 112/69 (83) 97 01/07/18 17:00 80 21 114/52 (72) 97 01/07/18 16:00 76 01/07/18 16:00 98.7 01/07/18 16:00 76 26 106/49 (68) 97 01/07/18 14:00 66 01/07/18 14:00 66 17 115/73 (87) 99 01/07/18 13:00 68 19 94/51 (65) 99 01/07/18 12:00 97.8 01/07/18 12:00 68 17 105/52 (69) 99 01/07/18 12:00 68 01/07/18 11:00 72 21 128/41 (70) 97 Exam CONSTITUTIONAL/GENERAL: This is a morbidly obese, elderly male lying in bed in no acute distress. TUBES/LINES/DRAINS: Right IJ central line. SKIN: Massive areas of ecchymosis, skin tears and bruising on bilateral upper and left lower extremity. Moderately severe Mariella type rash in bilateral groin folds with some open areas. Discoloration of left lower extremity with chronic lymphedema. Bruising on bilateral hands. HEAD: Atraumatic. Normocephalic. EYES: Pupils equal and round and reactive. Extraocular motions intact. No scleral icterus. No injection or drainage. Fundi not examined. ENT: Hearing grossly normal. Nose without bleeding or purulent drainage. Throat without visible erythema, exudates, masses, or lesions. NECK: Trachea midline. Supple, nontender. No palpable thyroid enlargement or nodularity. CARDIOVASCULAR: S1, S2 regular rhythm, controlled rate with a harsh 2/6 systolic ejection murmur at the right sternal border. Unable to evaluate JVD due to massive neck size. RESPIRATORY/CHEST: Symmetric, unlabored respirations. Clear to auscultation. Breath sounds equal bilaterally. No wheezes, rales, or rhonchi. GASTROINTESTINAL: Abdomen obese, soft, non-tender, nondistended. Unable to palpate for organomegaly due to body habitus, no guarding. Bowel sounds present. GENITOURINARY: Without palpable bladder distension. Buckner catheter in place. MUSCULOSKELETAL: Generalized weakness in all extremities, 2+ edema/lymphedema to bilateral lower extremities. Left foot deformity. LYMPHATICS: No palpable cervical or supraclavicular adenopathy. NEUROLOGICAL: Lethargic, arousable, moves all extremities to command, answers appropriately when aroused. PSYCHIATRIC: No obvious anxiety/depression. no apparent hallucinations or other psychotic thought process. . Diagnostic Tests Laboratory Laboratory Tests Test 01/05/18 17:53 01/05/18 17:55 01/05/18 20:10 01/06/18 00:00 Blood Gas Puncture Site LT RADIAL Blood Gas Patient Temperature 98.6 Blood Gas HCO3 22 mmol/L (22-26) Blood Gas Base Excess -1.2 mmol/L (-2-2) Blood Gas Oxygen Saturation 98 % (90-100) Arterial Blood pH 7.50 (7.380-7.420) Arterial Blood Partial Pressure CO2 28 mmHG (38-42) Arterial Blood Partial Pressure O2 455 mmHG (61-120) Arterial Blood Oxygen Content 20.5 Vol % (12.0-20.0) Arterial Blood Carboxyhemoglobin 1.6 % (0-4) Arterial Blood Methemoglobin 1.2 % (0-2) Blood Gas Hemoglobin 14.2 G/DL (12.0-16.0) Oxygen Delivery Device BIPAP Blood Gas Ventilator Setting IPAP15/EPAP5 Blood Gas Inspired Oxygen 100 % White Blood Count 9.8 TH/MM3 (4.0-11.0) Red Blood Count 4.42 MIL/MM3 (4.50-5.90) Hemoglobin 13.8 GM/DL (13.0-17.0) Hematocrit 41.1 % (39.0-51.0) Mean Corpuscular Volume 92.8 FL (80.0-100.0) Mean Corpuscular Hemoglobin 31.1 PG (27.0-34.0) Mean Corpuscular Hemoglobin Concent 33.5 % (32.0-36.0) Red Cell Distribution Width 15.1 % (11.6-17.2) Platelet Count 165 TH/MM3 (150-450) Mean Platelet Volume 7.4 FL (7.0-11.0) Neutrophils (%) (Auto) 92.9 % (16.0-70.0) Lymphocytes (%) (Auto) 5.1 % (9.0-44.0) Monocytes (%) (Auto) 1.7 % (0.0-8.0) Eosinophils (%) (Auto) 0.2 % (0.0-4.0) Basophils (%) (Auto) 0.1 % (0.0-2.0) Neutrophils # (Auto) 9.1 TH/MM3 (1.8-7.7) Lymphocytes # (Auto) 0.5 TH/MM3 (1.0-4.8) Monocytes # (Auto) 0.2 TH/MM3 (0-0.9) Eosinophils # (Auto) 0.0 TH/MM3 (0-0.4) Basophils # (Auto) 0.0 TH/MM3 (0-0.2) CBC Comment DIFF FINAL Differential Comment Prothrombin Time 10.9 SEC (9.8-11.6) Prothromb Time International Ratio 1.1 RATIO Activated Partial Thromboplast Time 25.0 SEC (24.3-30.1) Blood Urea Nitrogen 13 MG/DL (7-18) Creatinine 1.10 MG/DL (0.60-1.30) Random Glucose 137 MG/DL (74-106) Total Protein 6.8 GM/DL (6.4-8.2) Albumin 3.0 GM/DL (3.4-5.0) Calcium Level 8.6 MG/DL (8.5-10.1) Alkaline Phosphatase 79 U/L (45-117) Aspartate Amino Transf (AST/SGOT) 35 U/L (15-37) Alanine Aminotransferase (ALT/SGPT) 21 U/L (12-78) Total Bilirubin 1.0 MG/DL (0.2-1.0) Sodium Level 136 MEQ/L (136-145) Potassium Level 3.8 MEQ/L (3.5-5.1) Chloride Level 102 MEQ/L (98-107) Carbon Dioxide Level 27.2 MEQ/L (21.0-32.0) Anion Gap 7 MEQ/L (5-15) Estimat Glomerular Filtration Rate 64 ML/MIN (>89) Lactic Acid Level 2.2 mmol/L (0.4-2.0) 2.0 mmol/L (0.4-2.0) Troponin I 0.04 NG/ML (0.02-0.05) B-Type Natriuretic Peptide 84 PG/ML (0-100) Thyroid Stimulating Hormone 3rd Gen 5.110 uIU/ML (0.358-3.740) Urine Collection Type CATH Urine Color YELLOW (YELLW/STRAW) Urine Turbidity CLEAR (CLEAR) Urine pH 7.0 (5.0-8.5) Urine Specific [place] 1.020 (1.002-1.035) Urine Protein NEG mg/dL (NEG-TRACE) Urine Glucose (UA) NEG mg/dL (NEG) Urine Ketones NEG mg/dL (NEG) Urine Occult Blood NEG (NEG) Urine Nitrite NEG (NEG) Urine Bilirubin NEG (NEG) Urine Urobilinogen 0.2 MG/DL (LESS THAN Urine Leukocyte Esterase NEG (NEG) Urine WBC 0-2 /hpf (0-5) Urine Collection Time 2010 Test 01/06/18 05:00 01/07/18 04:37 01/08/18 04:23 White Blood Count 7.0 TH/MM3 (4.0-11.0) 5.0 TH/MM3 (4.0-11.0) Red Blood Count 4.05 MIL/MM3 (4.50-5.90) 3.85 MIL/MM3 (4.50-5.90) Hemoglobin 12.3 GM/DL (13.0-17.0) 11.6 GM/DL (13.0-17.0) Hematocrit 37.7 % (39.0-51.0) 35.7 % (39.0-51.0) Mean Corpuscular Volume 93.1 FL (80.0-100.0) 92.8 FL (80.0-100.0) Mean Corpuscular Hemoglobin 30.5 PG (27.0-34.0) 30.2 PG (27.0-34.0) Mean Corpuscular Hemoglobin Concent 32.8 % (32.0-36.0) 32.5 % (32.0-36.0) Red Cell Distribution Width 15.5 % (11.6-17.2) 15.4 % (11.6-17.2) Platelet Count 158 TH/MM3 (150-450) 141 TH/MM3 (150-450) Mean Platelet Volume 7.5 FL (7.0-11.0) 7.4 FL (7.0-11.0) Neutrophils (%) (Auto) 86.4 % (16.0-70.0) 68.2 % (16.0-70.0) Lymphocytes (%) (Auto) 5.6 % (9.0-44.0) 15.6 % (9.0-44.0) Monocytes (%) (Auto) 6.8 % (0.0-8.0) 12.6 % (0.0-8.0) Eosinophils (%) (Auto) 0.7 % (0.0-4.0) 3.0 % (0.0-4.0) Basophils (%) (Auto) 0.5 % (0.0-2.0) 0.6 % (0.0-2.0) Neutrophils # (Auto) 6.1 TH/MM3 (1.8-7.7) 3.5 TH/MM3 (1.8-7.7) Lymphocytes # (Auto) 0.4 TH/MM3 (1.0-4.8) 0.8 TH/MM3 (1.0-4.8) Monocytes # (Auto) 0.5 TH/MM3 (0-0.9) 0.6 TH/MM3 (0-0.9) Eosinophils # (Auto) 0.0 TH/MM3 (0-0.4) 0.1 TH/MM3 (0-0.4) Basophils # (Auto) 0.0 TH/MM3 (0-0.2) 0.0 TH/MM3 (0-0.2) CBC Comment DIFF FINAL DIFF FINAL Differential Comment Blood Urea Nitrogen 21 MG/DL (7-18) 13 MG/DL (7-18) 10 MG/DL (7-18) Creatinine 1.70 MG/DL (0.60-1.30) 0.90 MG/DL (0.60-1.30) 0.81 MG/DL (0.60-1.30) Random Glucose 119 MG/DL (74-106) 84 MG/DL (74-106) 91 MG/DL (74-106) Total Protein 6.2 GM/DL (6.4-8.2) 6.0 GM/DL (6.4-8.2) 6.0 GM/DL (6.4-8.2) Albumin 2.6 GM/DL (3.4-5.0) 2.4 GM/DL (3.4-5.0) 2.3 GM/DL (3.4-5.0) Calcium Level 8.2 MG/DL (8.5-10.1) 8.3 MG/DL (8.5-10.1) 8.1 MG/DL (8.5-10.1) Alkaline Phosphatase 66 U/L (45-117) 60 U/L (45-117) 59 U/L (45-117) Aspartate Amino Transf (AST/SGOT) 38 U/L (15-37) 47 U/L (15-37) 46 U/L (15-37) Alanine Aminotransferase (ALT/SGPT) 20 U/L (12-78) 26 U/L (12-78) 25 U/L (12-78) Total Bilirubin 1.0 MG/DL (0.2-1.0) 0.8 MG/DL (0.2-1.0) 1.0 MG/DL (0.2-1.0) Sodium Level 139 MEQ/L (136-145) 139 MEQ/L (136-145) 135 MEQ/L (136-145) Potassium Level 3.8 MEQ/L (3.5-5.1) 4.1 MEQ/L (3.5-5.1) 3.8 MEQ/L (3.5-5.1) Chloride Level 104 MEQ/L (98-107) 106 MEQ/L (98-107) 102 MEQ/L (98-107) Carbon Dioxide Level 26.8 MEQ/L (21.0-32.0) 23.6 MEQ/L (21.0-32.0) 24.7 MEQ/L (21.0-32.0) Anion Gap 8 MEQ/L (5-15) 9 MEQ/L (5-15) 8 MEQ/L (5-15) Estimat Glomerular Filtration Rate 39 ML/MIN (>89) 81 ML/MIN (>89) 91 ML/MIN (>89) Result Diagram: 01/08/18 0423 01/08/18 0423 Microbiology Microbiology Date/Time Source Procedure Growth Status 01/07/18 12:30 Blood Peripheral Aerobic Blood Culture Pending Received 01/07/18 12:30 Blood Peripheral Anaerobic Blood Culture Pending Received 01/07/18 12:20 Blood Peripheral Aerobic Blood Culture Pending Received 01/07/18 12:20 Blood Peripheral Anaerobic Blood Culture Pending Received 01/05/18 17:55 Blood Peripheral Aerobic Blood Culture - Preliminary NO GROWTH IN 2 DAYS Resulted 01/05/18 17:55 Anaerobic Blood Culture - Preliminary Gram Positive Cocci Resulted 01/05/18 17:50 Blood Peripheral Aerobic Blood Culture - Preliminary NO GROWTH IN 2 DAYS Resulted 01/05/18 17:50 Blood Peripheral Anaerobic Blood Culture - Final QNS - SEE AEROBE REPORT Resulted Imaging Last Impressions Chest X-Ray 01/07/18 0600 Signed Impressions: CONCLUSION: Diffuse interstitial prominence is unchanged. Aorta remains quite tortuous. Renal Ultrasound 01/06/18 0000 Signed Impressions: CONCLUSION: Negative renal ultrasound examination. Head CT 01/05/18 0000 Signed Impressions: CONCLUSION: 1. Senescent changes without acute intracranial abnormality. Patient/Family Conference Present at Family Conference: Spoke with Madina and patient at bedside. Patient was generally lethargic and dozing through the conversation but when aroused would participate appropriately. Reviewed palliative care purpose and focus as well as the below listed items. Engaged in life review, past social, psychosocial, medical and surgical history. Discussed CODE STATUS to include possible scenarios for outcomes. The states that they would want aggressive resuscitation however not prolonged mechanical ventilation if he was not going to recover. . Family Conference Location: Bedside Issues Discussed: * Palliative care role, purpose, approach * Additional medical, psychosocial, and spiritual history * Patients general health, functional status, and cognitive changes in the months leading up to the current hospitalization * Patient/family understanding of the current medical problems * Patient/family understanding of prognosis * Patients goals of care as best understood from advance directives and/or conversations and/or values * Current medical treatment options and benefits/burdens of those options * Likely scenarios comparing ongoing aggressive care with a transition to comfort measures only * Questions answered to the best of my ability * Palliative care contact information provided Assessment and Plan Disease Oriented Problem List: (1) Morbid obesity (2) Generalized weakness (3) Hypoxia (4) COPD (chronic obstructive pulmonary disease) (5) Possible sepsis (6) History of DVT and PE Symptom Scale: (1) Dyspnea and respiratory abnormalities 0-10 Scale: Unable to quantify (COPD with obesity hypoventilation/pickwickian) (2) Weakness 0-10 Scale: Unable to quantify (Due to patient lethargy) Pertinent Non-Medical Issues Psychosocial:He was born in [place], [place] and moved to [place], [place] at the age of 4. After his father at the young age of 27, his mother remarried and send him to school for a short time. He joined the [employer] at age 16 and left after 2 years at the urging of his first . After his divorce she attempted to reenlist but was unable to due to flat feet. 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 He remarried his current and they had 3 children, Narendra Doran (Allen), who resides with his , Cortney, in [place], daughter Nilda Cee who resides in [place] and son Rogers (Rick) . who travels the world extensively as a integrity manager. Spiritual: Raised in the [employer] julio, converted to Pentecostal julio later. Not a currently important concept in his life. Legal: He is , Madina, is his healthcare surrogate and DURABLE POWER OF REFERENCE ASSISTANT. Ethical issues impacting care: None noted. . Important Contacts : Madina Doran . Prognosis His prognosis is guarded. He has multiple comorbidities to include morbid obesity, likely diastolic heart failure, respiratory insufficiency compounded by morbid obesity, cardiomegaly, history of pulmonary embolus 2, eroded skin integrity and chronic fungal rash, history of heavy alcohol and tobacco use. He is admitted with weakness and hypoxia and improving on current therapy but remains at elevated risk of recurrent complications, decline and rehospitalization. . Code Status: Full Code Plan PLAN: Legal decision maker: Patient at this time is oriented but too lethargic to independently make his own decisions. His has been named his healthcare surrogate and is readily available and willing to serve in that role. At this time joint decision making is recommended. Goals: Aggressive CODE STATUS: FULL CODE SYMPTOMS: * Weakness: This is chronic and progressive, likely worsened by debility secondary to sedentary behavior, and possible sepsis. Blood cultures are still pending, but initial blood culture shows gram-positive cocci. He is also hypothyroid with a presenting TSH greater than 5. His home dose of levothyroxine was resumed at 88 mcg daily. He may benefit from an increase in his levothyroxine. He is receiving antibiotics and will need physical therapy prior to discharge home. * Dyspnea: He does have an approximate [id number] history of tobacco use however quit nearly 40 years ago as well as 2 separate pulmonary emboli. He has oxygen at home which he uses infrequently. He is very sedentary but morbidly obese, causing any activity to exacerbate his dyspnea. While he would benefit from short-term rehab, his states he refuses to go. SUMMARY This is an 82-year-old morbidly obese male with a long history of medical noncompliance who presents with weakness and hypoxia. He is being treated with antibiotics, oxygen, DuoNeb and is improving on therapy. He remains very lethargic, however is stable on 2 L nasal cannula. It is the goal of the patient and the family to return home after hospitalization, however that may not be possible due to the patient's overall weakness and debility. He is at elevated risk of recurrent complications, continued decline and recurrent hospitalizations. Palliative care will continue to follow the patient during hospital course as condition evolves, to assist patient/decision-maker with understanding of their medical conditions, weighing benefits/burdens of treatment options, for clarification of goals of treatment. Additionally will assist with any symptoms of palliative concern. . Thank you for the opportunity to participate in the care of Mr. Doran. Attestation To help prompt me to consider important information that might be impacting today's encounter and assessment, information from prior notes written by myself or my colleagues may have been "brought forward" into today's note. My signature on this note, however, is an attestation that I personally performed the exam, history, and/or decision-making noted today, and, unless otherwise indicated, the interactions with patient, family, and staff as well as the review of records all occurred today. I also attest that the listed assessment and stated plan reflect my best clinical judgment today based on the combination of historical information, prior notes, and today's exam/ interactions. When time spent is documented, it refers only to time spent today by the signer, or if indicated, combined time spent today by collaborating physician/nurse practitioner. . Aydee Harirs Jan 08, 2018 11:59 am
--- NOTE | 2018-01-08 12:58 | HHI.PR ---
Subjective Remarks Patient is much more alert today. Still falling asleep frequently, but wakes up and participates in conversation and is alert and oriented. Stable on 2 L O2. He is adamant we would want to go home on discharge. Appreciate palliative care seeing the patient. Objective Vitals Vital Signs Date Time Temp Pulse Resp B/P (MAP) Pulse Ox O2 Delivery O2 Flow Rate FiO2 01/08/18 12:00 98.5 01/08/18 11:00 80 14 95 01/08/18 09:28 97 Nasal Cannula 2.00 01/08/18 08:00 80 01/08/18 08:00 97.3 82 17 127/61 (83) 93 01/08/18 07:27 98.7 01/08/18 07:00 Nasal Cannula 2.00 01/08/18 06:00 84 18 93 01/08/18 05:00 84 15 95 01/08/18 04:00 84 17 95 01/08/18 04:00 84 17 95 01/08/18 04:00 76 01/08/18 03:00 88 19 93 01/08/18 02:49 82 16 119/63 (81) 94 01/08/18 02:00 84 15 95 01/08/18 01:00 90 19 115/33 (60) 95 01/08/18 00:05 88 17 100/49 (66) 95 01/08/18 00:00 86 18 93 01/08/18 00:00 72 01/08/18 00:00 86 18 93 01/07/18 23:00 90 19 108/46 (66) 96 01/07/18 22:00 88 17 92/65 (74) 97 01/07/18 21:18 99 Nasal Cannula 2.00 01/07/18 21:00 80 23 120/59 (79) 98 01/07/18 20:00 98.7 84 26 121/45 (70) 94 01/07/18 20:00 80 01/07/18 20:00 Nasal Cannula 2.00 01/07/18 19:00 76 15 132/63 (86) 95 01/07/18 18:00 78 01/07/18 18:00 78 19 112/69 (83) 97 01/07/18 17:00 80 21 114/52 (72) 97 01/07/18 16:00 76 01/07/18 16:00 98.7 01/07/18 16:00 76 26 106/49 (68) 97 01/07/18 14:00 66 01/07/18 14:00 66 17 115/73 (87) 99 01/07/18 13:00 68 19 94/51 (65) 99 Result Diagram: 01/08/18 0423 01/08/18422 Objective Remarks GENERAL: Morbidly obese elderly male laying in bed in no acute distress. SKIN: Diffuse ecchymoses. Arms wrapped with gauze and secured with davida bandage b /l. Warm and dry. HEAD: Normocephalic. EYES: No scleral icterus. No injection or drainage. NECK: Supple, trachea midline. No JVD or lymphadenopathy. CARDIOVASCULAR: Regular rate and rhythm , 2/6 systolic murmur loudest at RSB. RESPIRATORY: Breath sounds equal bilaterally. No accessory muscle use. GASTROINTESTINAL: Abdomen soft, non-tender, nondistended. EXTREMITIES: 2+ edema lower extremities. NEUROLOGICAL: Falls asleep frequently during exam, but easily awakens, and becomes alert and oriented and follows commands. A/P Problem List: (1) Pneumonia (2) Sepsis ICD Codes: A41.9 - Sepsis, unspecified organism (3) Respiratory insufficiency ICD Codes: R06.89 - Other abnormalities of breathing (4) LEATHA (acute kidney injury) ICD Codes: N17.9 - Acute kidney failure, unspecified (5) Hypoxia ICD Codes: R09.02 - Hypoxemia Status: Acute (6) Weakness ICD Codes: R53.1 - Weakness Status: Acute (7) COPD (chronic obstructive pulmonary disease) ICD Codes: J44.9 - Chronic obstructive pulmonary disease, unspecified (8) CAD (coronary artery disease) ICD Codes: I25.10 - Atherosclerotic heart disease of [place] coronary artery without angina pectoris (9) History of DVT and PE Assessment and Plan 82 yo male admitted from home after fall at home. Presented with AMS, acute resp failure, mild pulmonary edema. Developed hypotension and was admitted to intensivists for 1 day, now transferred to my care. -Bacteremia - 1 BC positive for GPC. Repeat 2 BC are negative at 1 day. This may just be contaminant. vancomycin IV until organism is identified and BC results finalized.. -AMS/ metabolic encephalopathy--Most likely secondary to sepsis, CT of the head negative. IMPROVING. Hold hydrocodone, tylenol as needed for pain. -Respiratory insufficiency - improved now stable on 2 L NC. Due to combination of pulmonary interstitial edema and possible underlying CAP, COPD, obesity hypoventilation. He also has history of restrictive lung disease, possible sleep apnea (as per PCP's notes). History of 40 pack year tobacco. Apparently has portable O2 at home in the past. Continue rocephin and zithromax. Avoid fluid overload. IVF DC'ed. May need to restart them if he does not improve oral intake. He does have history of pulmonary edema in the past, this is likely diastolic CHF. Echo this admission shows preserved EF, no significant valvular disease. -Nasal cannula oxygen to keep saturation more than 90% -DuoNeb every 6 hours scheduled and as needed -BiPAP as needed -IV Rocephin and azithromycin Chronic bilateral pedal edema, venous insufficiency, morbid obesity. 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 Acute kidney injury on CKD stage 2- resolved, cr back to normal. Gout - cont allopurinol. Hypothyroidism -Continue levothyroxine, TSH was mildly elevated but this may be due to current illness, would recommend this be repeated by PCP after hospitalization. Generalized weakness - continue PT. I discussed with patient and his he will likely need SNF at discharge. He is very resistant to the idea. Skin tears severe - continue wound care recommendations as per nursing. Hx of DVT and PE - continue eliquis 2.5 mg BID. DVT px - eliquis. FULL CODE status - he wants aggressive care. However he would not want to remain on life support if it was considered futile. Appreciate palliative care for support and additional clarification of goals. Minal Bianchi MD Jan 08, 2018 12:57
[2018-01-08] MEDS: ATORVASTATIN 40 MG TAB PO SCH (21:10)
[2018-01-08] MEDS: cefTRIAXone INJ 1,000 MG in SODIUM CHLORIDE 0.9% INJ 100 ML IV SCH (21:11)
[2018-01-09] VITALS (12 sets, daily range): BP systolic 95–110; BP diastolic 42–70; PULSE 82–96; RESP 17–33; TEMP 97.6–99.2; O2SAT 95–99
[2018-01-09] MEDS: RESP: ALBUTEROL 2.5 MG/IPRATROPIUM 0.5 MG NEB (SCH) NEB ×4 (03:49→21:23)
[2018-01-09] MEDS: LEVOTHYROXINE SODIUM 88 MCG TAB PO SCH (06:32)
[2018-01-09] MEDS: LACTOBACILLUS ACIDOPHILUS TAB PO SCH ×3 (08:39→18:00)
[2018-01-09] MEDS: AZITHROMYCIN INJ 500 MG in SODIUM CHLOR 0.9% 250 ML INJ 250 ML IV SCH (08:39)
[2018-01-09] MEDS: SODIUM CHLORIDE 0.9% FLUSH 10 ML FLUSH IV FLUSH SCH ×2 (08:40→20:57)
[2018-01-09] MEDS: ALLOPURINOL 300 MG TAB PO SCH (08:40)
[2018-01-09] MEDS: APIXABAN 2.5 MG TABLET PO SCH ×2 (08:40→20:57)
[2018-01-09] MEDS: DOCUSATE SODIUM 50 MG/SENNA 8.6 MG TAB PO SCH ×2 (08:40→20:58)
[2018-01-09] MEDS: ACETAMINOPHEN 325 MG TAB PO PRN (10:39)
[2018-01-09] MEDS: SODIUM CHLOR 0.9% 1000 ML INJ 1,000 ML IV SCH ×2 (14:00→22:12)
--- NOTE | 2018-01-09 14:01 | HHI.PR ---
Subjective Remarks doesnt like the food, room is hot bandages are bothering him, Objective Vitals Vital Signs Date Time Temp Pulse Resp B/P (MAP) Pulse Ox O2 Delivery O2 Flow Rate FiO2 01/09/18 12:00 98.4 96 33 95/42 (59) 96 01/09/18 10:46 96 Nasal Cannula 2.00 01/09/18 08:00 Nasal Cannula 2.00 01/09/18 08:00 98.7 90 19 100/58 (72) 96 01/09/18 08:00 92 01/09/18 03:03 99.2 82 20 110/70 (83) 95 01/08/18 23:52 97.6 88 21 120/76 (91) 94 01/08/18 23:05 Nasal Cannula 2.00 40 01/08/18 20:28 95 Nasal Cannula 2.00 01/08/18 20:25 99.0 84 19 98/45 (62) 95 01/08/18 17:00 98.3 82 17 125/71 (89) 96 01/08/18 16:00 80 01/08/18 16:00 89 Result Diagram: 01/08/18 0423 01/08/18 0423 Imaging Last Impressions Chest X-Ray 01/07/18 0600 Signed Impressions: CONCLUSION: Diffuse interstitial prominence is unchanged. Aorta remains quite tortuous. Renal Ultrasound 01/06/18 0000 Signed Impressions: CONCLUSION: Negative renal ultrasound examination. Head CT 01/05/18 0000 Signed Impressions: CONCLUSION: 1. Senescent changes without acute intracranial abnormality. Objective Remarks GENERAL: Morbidly obese elderly male laying in bed in no acute distress. SKIN: Diffuse ecchymoses. Arms wrapped with gauze and secured with davida bandage b /l. Warm and dry.erythema and tearing under breast and pannus ecchymosis throughout abdomen, back shoulder and arms, skin is very thin and fragile, tears on light contact if trying to rotate him in bed HEAD: Normocephalic. EYES: No scleral icterus. No injection or drainage. NECK: Supple, trachea midline. No JVD or lymphadenopathy. CARDIOVASCULAR: Regular rate and rhythm , 2/6 systolic murmur loudest at RSB. RESPIRATORY: Breath sounds equal bilaterally. No accessory muscle use. GASTROINTESTINAL: Abdomen soft, non-tender, nondistended. EXTREMITIES: 2+ edema lower extremities. NEUROLOGICAL: Falls asleep frequently during exam, but easily awakens, and becomes alert and oriented and follows commands. A/P Problem List: (1) Sepsis ICD Codes: A41.9 - Sepsis, unspecified organism Plan: on rocephin, azithromycin and vanco follow cultures (2) Respiratory insufficiency ICD Codes: R06.89 - Other abnormalities of breathing Status: Chronic Plan: mulitifactorial copd, hypoventilation from obesity currently comfortable on 2 liters (3) LEATHA (acute kidney injury) ICD Codes: N17.9 - Acute kidney failure, unspecified Plan: renal function is improved with gentle hydration will continue (4) Hypoxia ICD Codes: R09.02 - Hypoxemia Status: Acute Plan: improved with oxygen at home does not lie flat sits up in recliner (5) Weakness ICD Codes: R53.1 - Weakness Status: Acute Plan: per uses walker at home and motorized scooter, being seen by PT (6) COPD (chronic obstructive pulmonary disease) ICD Codes: J44.9 - Chronic obstructive pulmonary disease, unspecified (7) History of DVT and PE Plan: on eliquis (8) Extensive tearing away of skin ICD Codes: T14.8XXA - Other injury of unspecified body region, initial encounter Plan: his skin is thin and fragile and tears extremely easily . He is morbidly obese and attempts to rotate him him and offload pressure points are complicated by the potential for developing new skin tears and bleeding. Wound care has been consulted and request has been made for specialty bed. His states that at home she has to use towels and cloths to help move him to avoid tearing his skin. Danae Tian MD Jan 09, 2018 14:01
[2018-01-09 14:19] LABS: AUTOMATED NEUTROPHIL # 3.9 TH/MM3 (1.8-7.7); BASOPHIL % 0.3 % (0.0-2.0); EOSINOPHIL # 0.2 TH/MM3 (0-0.4); EOSINOPHIL % 3.1 % (0.0-4.0); HEMATOCRIT 33.4 % (39.0-51.0); LYMPH % 17.3 % (9.0-44.0); LYMPHOCYTE # 1.1 TH/MM3 (1.0-4.8); MEAN CELL VOLUME 89.4 FL (80.0-100.0); MEAN CORPUSCULAR HGB CONC 35.8 % (32.0-36.0); MEAN PLATELET VOLUME 7.4 FL (7.0-11.0); MONO % 15.2 % (0.0-8.0); MONOCYTE # 0.9 TH/MM3 (0-0.9); NEUT % 64.1 % (16.0-70.0); PLATELET COUNT 144 TH/MM3 (150-450); RED BLOOD COUNT 3.74 MIL/MM3 (4.50-5.90); RED CELL DISTRIBUTION WIDTH 15.3 % (11.6-17.2); WHITE BLOOD COUNT 6.1 TH/MM3 (4.0-11.0)
[2018-01-09 14:21] LABS: BICARBONATE 17.9 MEQ/L (21.0-32.0); CALCIUM 7.7 MG/DL (8.5-10.1)
[2018-01-09 14:25] LABS: CREATININE 0.71 MG/DL (0.60-1.30)
[2018-01-09] MEDS: ATORVASTATIN 40 MG TAB PO SCH (20:57)
[2018-01-09] MEDS: cefTRIAXone INJ 1,000 MG in SODIUM CHLORIDE 0.9% INJ 100 ML IV SCH (20:58)
[2018-01-10] VITALS (58 sets, daily range): BP systolic 49–132; BP diastolic 33–64; PULSE 86–100; RESP 16–26; TEMP 97.6–98.7; O2SAT 88–99
[2018-01-10] MEDS: RESP: ALBUTEROL 2.5 MG/IPRATROPIUM 0.5 MG NEB (SCH) NEB (04:30)
[2018-01-10] MEDS: LEVOTHYROXINE SODIUM 88 MCG TAB PO SCH (06:10)
[2018-01-10] MEDS: SODIUM CHLORIDE 0.9% FLUSH 10 ML FLUSH IV FLUSH SCH ×2 (09:00→20:41)
[2018-01-10] MEDS: AZITHROMYCIN INJ 500 MG in SODIUM CHLOR 0.9% 250 ML INJ 250 ML IV SCH (09:01)
[2018-01-10] MEDS: LACTOBACILLUS ACIDOPHILUS TAB PO SCH ×3 (09:03→17:28)
[2018-01-10] MEDS: APIXABAN 2.5 MG TABLET PO SCH ×2 (09:03→20:40)
[2018-01-10] MEDS: ALLOPURINOL 300 MG TAB PO SCH (09:04)
[2018-01-10] MEDS: DOCUSATE SODIUM 50 MG/SENNA 8.6 MG TAB PO SCH ×2 (09:04→20:41)
[2018-01-10 10:03] LABS: BICARBONATE 19.2 MEQ/L (21.0-32.0); CALCIUM 7.7 MG/DL (8.5-10.1)
[2018-01-10 10:06] LABS: CREATININE 0.59 MG/DL (0.60-1.30)
[2018-01-10] MEDS: SODIUM CHLOR 0.9% 1000 ML INJ 1,000 ML IV SCH ×2 (12:18→21:48)
[2018-01-10] MEDS ORDERED: ACETAMINOPHEN/HYDROcodone 325 MG/5 MG TAB PO ONE (15:30)
--- NOTE | 2018-01-10 16:07 | HHI.PR ---
Subjective Remarks Wants to be with god. Does not want to continue living the way he is. His brought up hospice when I walked into the room . He told me he wants her to bet he decision maker. Objective Vitals Vital Signs Date Time Temp Pulse Resp B/P (MAP) Pulse Ox O2 Delivery O2 Flow Rate FiO2 01/10/18 14:30 94 23 107/41 (63) 94 01/10/18 14:20 92 20 92/44 (60) 92 01/10/18 14:05 88 20 82/39 (53) 92 01/10/18 13:50 86 20 91/33 (52) 91 01/10/18 13:34 88 21 106/54 (71) 91 01/10/18 13:19 90 19 94/40 (58) 93 01/10/18 13:04 88 20 77/46 (56) 93 01/10/18 12:49 90 23 98/41 (60) 93 01/10/18 12:34 88 21 104/45 (64) 93 01/10/18 12:19 98.5 90 19 86/48 (61) 91 01/10/18 11:49 92 24 111/40 (63) 88 01/10/18 11:41 100 26 111/34 (59) 94 01/10/18 11:25 92 26 71/39 (50) 94 01/10/18 11:19 86 19 89/37 (54) 91 01/10/18 11:04 96 21 99/43 (61) 93 01/10/18 10:49 86 20 96/44 (61) 92 01/10/18 10:34 92 20 97/60 (72) 88 01/10/18 10:25 88 19 92/39 (56) 90 01/10/18 10:10 92 20 82/43 (56) 91 01/10/18 10:00 92 01/10/18 09:49 98 21 62/39 (47) 91 01/10/18 09:34 96 23 109/42 (64) 91 01/10/18 09:21 92 20 99/37 (57) 92 01/10/18 09:19 86 20 71/41 (51) 88 01/10/18 09:04 90 21 69/40 (50) 93 01/10/18 08:49 94 21 82/51 (61) 91 01/10/18 08:34 92 22 91/51 (64) 93 01/10/18 08:19 92 21 96/38 (57) 90 01/10/18 08:06 98 22 91/43 (59) 93 01/10/18 08:04 94 21 79/37 (51) 92 01/10/18 08:00 94 01/10/18 07:52 90 23 92/44 (60) 93 01/10/18 07:49 94 20 85/46 (59) 92 01/10/18 07:34 86 19 86/60 (69) 97 01/10/18 07:19 92 20 95/53 (67) 95 01/10/18 07:10 96 25 99/58 (72) 98 01/10/18 07:06 92 22 73/46 (55) 97 01/10/18 07:00 97.8 96 23 98/37 (57) 97 01/10/18 05:13 90 20 97/48 (64) 99 01/10/18 04:00 98.7 88 22 89/46 (60) 94 01/10/18 04:00 88 01/10/18 03:00 90 21 92/40 (57) 95 01/10/18 02:00 90 21 93/44 (60) 96 01/10/18 01:00 88 21 103/42 (62) 94 01/10/18 00:00 92 01/10/18 00:00 97.6 92 20 93/34 (53) 96 01/09/18 23:28 92 22 96/44 (61) 97 01/09/18 21:58 84 20 98/46 (63) 99 01/09/18 20:11 97 Nasal Cannula 2.00 01/09/18 20:00 84 01/09/18 20:00 98 Nasal Cannula 2.00 28 01/09/18 19:28 97.6 84 19 99/43 (61) 98 01/09/18 18:00 82 01/09/18 16:00 82 Result Diagram: 01/09/18 1405 01/10/18 0922 Imaging Last Impressions Chest X-Ray 01/07/18 0600 Signed Impressions: CONCLUSION: Diffuse interstitial prominence is unchanged. Aorta remains quite tortuous. Renal Ultrasound 01/06/18 0000 Signed Impressions: CONCLUSION: Negative renal ultrasound examination. Head CT 01/05/18 0000 Signed Impressions: CONCLUSION: 1. Senescent changes without acute intracranial abnormality. Objective Remarks GENERAL: Morbidly obese elderly male laying in bed in no acute distress.sleeping but arousable, alert when stimulated SKIN: Diffuse ecchymoses. Arms wrapped with gauze and secured with davida bandage b /l. Warm and dry.erythema and tearing under breast and pannus ecchymosis throughout abdomen, back shoulder and arms, skin is very thin and fragile, tears on light contact if trying to rotate him in bed HEAD: Normocephalic. EYES: No scleral icterus. No injection or drainage. NECK: Supple, trachea midline. No JVD or lymphadenopathy. CARDIOVASCULAR: Regular rate and rhythm , 2/6 systolic murmur loudest at RSB. RESPIRATORY: Breath sounds equal bilaterally. No accessory muscle use. GASTROINTESTINAL: Abdomen soft, non-tender, nondistended. EXTREMITIES: 2+ edema lower extremities. NEUROLOGICAL: Falls asleep frequently during exam, but easily awakens, and becomes alert and oriented and follows commands. [place] insert reason: Measure Accurate Output Date of Insertion: Jan 06, 2018 Date of Insertion: Jan 06, 2018 A/P Problem List: (1) Sepsis ICD Codes: A41.9 - Sepsis, unspecified organism Plan: on rocephin, azithromycin and vanco follow cultures has remained afebrile (2) Respiratory insufficiency ICD Codes: R06.89 - Other abnormalities of breathing Status: Chronic Plan: mulitifactorial copd, hypoventilation from obesity currently a little less alert today will recheck ABG (3) LEATHA (acute kidney injury) ICD Codes: N17.9 - Acute kidney failure, unspecified Plan: renal function is improved with gentle hydration blood pressure is lower , hard to get accurate reading will give fluid bolus as urine still looks dark (4) Hypoxia ICD Codes: R09.02 - Hypoxemia Status: Acute Plan: improved with oxygen, at home does not lie flat sits up in recliner cont to supplement 02 (5) Weakness ICD Codes: R53.1 - Weakness Status: Chronic Plan: per uses walker at home and motorized scooter, being seen by PT, tells me today he is able to move very little at home, has needed everything done for him , spends days watching TV and sleeping unable to get out of the house very often, she has to do everything (6) COPD (chronic obstructive pulmonary disease) ICD Codes: J44.9 - Chronic obstructive pulmonary disease, unspecified Status: Chronic Plan: continue nebulizers (7) History of DVT and PE Status: Chronic Plan: on eliquis (8) Extensive tearing away of skin ICD Codes: T14.8XXA - Other injury of unspecified body region, initial encounter Status: Chronic Plan: his skin is thin and fragile and tears extremely easily . He is morbidly obese and attempts to rotate him him and offload pressure points are complicated by the potential for developing new skin tears and bleeding. Wound care has been consulted and we were able to get a specialty bed that at home she has to use towels and cloths to help move him to avoid tearing his skin. Assessment and Plan Discussed goals of care with and patient. She will be discussing with her son who lives locally and has been coming to see him . Daughter is in [place] and other son is in [place]. Danae Tian MD Jan 10, 2018 16:07
[2018-01-10] MEDS: ACETAMINOPHEN 325 MG TAB PO PRN (17:29)
[2018-01-10 19:17] LABS: BLOOD, URINE LARGE (NEG); GLUCOSE,URINE NEG (NEG); KETONE, URINE 40 mg/dL (NEG); NITRITE,URINE NEG (NEG); PH, URINE 5.5 (5.0-8.5); URINE COLOR YELLOW (YELLW/STRAW); URINE LEUKOCYTE ESTERASE NEG (NEG)
[2018-01-10 19:18] LABS: BILIRUBIN, URINE NEG (NEG)
[2018-01-10 19:21] LABS: RBC, URINE 100-200 /hpf (0-3); SQUAMOUS EPITHELIAL CELL URINE 0-5 /hpf (0-5)
[2018-01-10] MEDS: ATORVASTATIN 40 MG TAB PO SCH (20:40)
[2018-01-10] MEDS: cefTRIAXone INJ 1,000 MG in SODIUM CHLORIDE 0.9% INJ 100 ML IV SCH (20:41)
[2018-01-11] VITALS (25 sets, daily range): BP systolic 94–138; BP diastolic 43–81; PULSE 84–106; RESP 16–40; TEMP 98.2–98.8; O2SAT 92–98
[2018-01-11] MEDS: LEVOTHYROXINE SODIUM 88 MCG TAB PO SCH (04:59)
[2018-01-11] MEDS: APIXABAN 2.5 MG TABLET PO SCH ×2 (09:47→20:09)
[2018-01-11] MEDS: AZITHROMYCIN INJ 500 MG in SODIUM CHLOR 0.9% 250 ML INJ 250 ML IV SCH (09:47)
[2018-01-11] MEDS: ALLOPURINOL 300 MG TAB PO SCH (09:48)
[2018-01-11] MEDS: DOCUSATE SODIUM 50 MG/SENNA 8.6 MG TAB PO SCH ×2 (09:48→20:09)
[2018-01-11] MEDS: LACTOBACILLUS ACIDOPHILUS TAB PO SCH ×3 (09:48→18:34)
[2018-01-11] MEDS: SODIUM CHLORIDE 0.9% FLUSH 10 ML FLUSH IV FLUSH SCH ×2 (09:52→20:10)
[2018-01-11] MEDS: SODIUM CHLOR 0.9% 1000 ML INJ 1,000 ML IV SCH (10:57)
--- NOTE | 2018-01-11 11:26 | HHI.HCPN ---
Reason for visit a. To assist with evaluation and management of symptoms including: Weakness , dyspnea, pain b. To assist medical decision maker(s) with: better understanding of current medical conditions; weighing benefits/burdens of medical treatment options; making medical treatment decisions. Subjective/Interval History Patient seen to follow-up on symptoms of dyspnea, weakness, constipation and pain. He remains on nasal cannula oxygen at 2 L. He is saturating adequately but frequently seen to be tachypneic with respiratory rates up to 40. Dyspnea is worsened by lying flat or activity, improved with rest and oxygen. It has been present for over 1 week. It has not improved throughout his hospitalization despite treatment. He remains extremely weak. Whereas at home he was able to stand and ambulate to the bathroom with a walker, he was unable to stand with physical therapy today despite maximum assistance 2. He has become considerably weaker with declining appetite. He attempted to do some bed exercises and dangled at bedside but was too weak to attempt anything further. He has multiple ecchymotic, blistered, oozing wounds all over his body. Across his shoulders and back are blisters and he has ecchymotic areas where ever he is touched. All 4 extremities are wrapped in Mario bandages and dressings due to the extensive skin tears. He states he would prefer to be in pain than suffer with the constipation of narcotics. He has already received offering from constipation secondary to bedbound status and poor nutrition. His last bowel movement was more than 6 days ago. He is receiving Abby-Colace twice daily and has milk of magnesia, Senokot, Dulcolax suppository and lactulose available as needed. No PRN's have been given. . Family/friend interactions I was contacted by Mrs. Doran this morning who relayed a conversation to me she had with her over the weekend. She states that her says he is tired of doing this, meaning back and forth to the hospital and is unhappy with his quality of life. He wishes to be made a DO NOT RESUSCITATE status and they wish to consider the possibility of transitioning to hospice. After discussing with Mrs. Doran it was determined that hospice consultation would be entered for her to obtain information regarding hospice services as well as availability of the care center. She is requesting that I make a visit with her and the patient this afternoon prior to making that decision. Hospice was consulted and informed of the patient's request. Hospice consultation will be arranged for information today. 15: 45-spoke with at bedside and she revealed that for the prior year her has been stating that he is tired of his life, he has no quality of life , he wants to find God and go home to God. His states that she has been telling him that she does not want him to go and she felt he has been holding on waiting for her to be ready. He continues to reiterate throughout his hospitalization that he is tired of being weak, short of breath, in pain, in and out of the hospital and wants to . Hospice consultation had previously been held and consent signed. During conversation with the she conferenced in her son, Ronald by phone and we reviewed the possible plan to transfer him to the hospice care [facility]. Ronald stated agreement with this plan and stated he wants his father comfortable. He is uncomfortable in bed and the IV in his neck occludes each time he turns his head causing the IV to alarm and disturbs his sleep. He also complains about the discomfort of the oxygen cannula in his nose, blood pressure cuff on his arm and being tangled up in all of the telemetry wires. He is in agreement with transferring to hospice care [place] [facility] for comfort care. As the whole family is in agreement with this plan, hospice was consulted for transportation arrangements to be made to transfer him from [facility] to the [facility] care [place] as soon as transport can be arranged. This information was called to Dr. Quevedo's office and given to her nurse, Treva. . Advance Directives Living Will: Copy in medical record Health Care Surrogate: Copy in medical record Durable Power of Cilnical Scientist: Completed, but not made available Advance Directive Specifics Date completed: August 13, 2000 . Health Care Surrogate(s): , Madina Doran . Documented care wishes: Standard living will verbiage. . Significant change in goals: Family has chosen to transition to hospice today and make the patient a DO NOT RESUSCITATE status. . Objective Vital Signs Date Time Temp Pulse Resp B/P (MAP) Pulse Ox O2 Delivery O2 Flow Rate FiO2 01/11/18 07:44 97 Nasal Cannula 2.00 01/11/18 07:01 88 18 127/49 (75) 92 01/11/18 06:01 84 17 121/53 (75) 93 01/11/18 06:00 84 01/11/18 04:20 98.4 84 16 111/43 (65) 96 01/11/18 04:00 84 01/11/18 03:00 86 24 116/59 (78) 96 01/11/18 02:07 92 21 120/59 (79) 96 01/11/18 02:00 92 01/11/18 01:00 92 17 94/49 (64) 95 01/11/18 00:00 98.7 90 23 102/81 (88) 96 01/11/18 00:00 90 01/10/18 23:00 92 16 110/64 (79) 93 01/10/18 22:00 90 01/10/18 22:00 90 17 112/51 (71) 96 01/10/18 21:00 94 19 109/57 (74) 95 01/10/18 20:29 98.3 90 17 132/58 (82) 96 01/10/18 20:21 96 Nasal Cannula 2.00 01/10/18 20:00 87 01/10/18 20:00 96 Nasal Cannula 2.00 28 01/10/18 19:01 92 21 111/49 (69) 94 01/10/18 16:04 94 Room Air 2.00 28 01/10/18 16:01 97.8 92 19 93/53 (66) 96 01/10/18 16:01 92 01/10/18 16:00 90 01/10/18 15:52 98 22 104/55 (71) 96 01/10/18 15:20 96 23 116/50 (72) 92 01/10/18 15:05 94 23 49/33 (38) 94 01/10/18 15:05 94 18 15:00 88 01/10/18 14:30 94 23 107/41 (63) 94 01/10/18 14:20 92 20 92/44 (60) 92 01/10/18 14:05 88 20 82/39 (53) 92 01/10/18 13:50 86 20 91/33 (52) 91 01/10/18 13:34 88 21 106/54 (71) 91 01/10/18 13:19 90 19 94/40 (58) 93 01/10/18 13:04 88 20 77/46 (56) 93 01/10/18 13:00 86 01/10/18 12:49 90 23 98/41 (60) 93 01/10/18 12:34 88 01/10/18 12:34 88 21 104/45 (64) 93 01/10/18 12:19 98.5 90 19 86/48 (61) 91 01/10/18 11:49 92 24 111/40 (63) 88 01/10/18 11:41 100 26 111/34 (59) 94 01/10/18 11:25 92 26 71/39 (50) 94 Intake & Output 01/11/18 01/11/18 07:00 19:00 Intake Total 1340 ml 1250 ml Output Total 400 ml Balance 940 ml 1250 ml Intake Oral 240 ml IV Total 1100 ml 1250 ml Output Urine Total 400 ml # Bowel Movements 0 Physical Exam CONSTITUTIONAL/GENERAL: This is a morbidly obese, elderly male lying in bed in no acute distress, frequent grimacing, furrowed brow, having difficulty getting comfortable. TUBES/LINES/DRAINS: Right IJ central line. SKIN: Massive areas of ecchymosis, skin tears, blood-filled blisters and bruising on bilateral upper and left lower extremity. Moderately severe Mariella type rash in bilateral groin folds with some open areas. Discoloration of left lower extremity with chronic lymphedema. Bruising on bilateral hands. Skin is extremely thin and friable HEAD: Atraumatic. Normocephalic. EYES: Pupils equal and round and reactive. Extraocular motions intact. No scleral icterus. No injection or drainage. Fundi not examined. ENT: Hearing grossly normal. Nose without bleeding or purulent drainage. Throat without visible erythema, exudates, masses, or lesions. NECK: Trachea midline. Supple, nontender. No palpable thyroid enlargement or nodularity. CARDIOVASCULAR: S1, S2 irregular rhythm, controlled rate with a harsh 2/6 systolic ejection murmur at the right sternal border. Unable to evaluate JVD due to massive neck size. RESPIRATORY/CHEST: Symmetric, unlabored respirations. Clear to auscultation. Breath sounds equal bilaterally. No wheezes, rales, or rhonchi. GASTROINTESTINAL: Abdomen obese, soft, non-tender, nondistended. Unable to palpate for organomegaly due to body habitus, no guarding. Bowel sounds present. GENITOURINARY: Without palpable bladder distension. Buckner catheter in place. MUSCULOSKELETAL: Generalized weakness in all extremities, 2+ edema/lymphedema to bilateral lower extremities. Left foot deformity. LYMPHATICS: No palpable cervical or supraclavicular adenopathy. NEUROLOGICAL: Lethargic, arousable, moves all extremities to command, answers appropriately when aroused. PSYCHIATRIC: No obvious anxiety/depression. no apparent hallucinations or other psychotic thought process. . Diagnostic Tests Laboratory Laboratory Tests Test 01/09/18 14:05 01/10/18 09:22 01/10/18 15:30 01/10/18 18:11 White Blood Count 6.1 TH/MM3 (4.0-11.0) Red Blood Count 3.74 MIL/MM3 (4.50-5.90) Hemoglobin 12.0 GM/DL (13.0-17.0) Hematocrit 33.4 % (39.0-51.0) Mean Corpuscular Volume 89.4 FL (80.0-100.0) Mean Corpuscular Hemoglobin 32.0 PG (27.0-34.0) Mean Corpuscular Hemoglobin Concent 35.8 % (32.0-36.0) Red Cell Distribution Width 15.3 % (11.6-17.2) Platelet Count 144 TH/MM3 (150-450) Mean Platelet Volume 7.4 FL (7.0-11.0) Neutrophils (%) (Auto) 64.1 % (16.0-70.0) Lymphocytes (%) (Auto) 17.3 % (9.0-44.0) Monocytes (%) (Auto) 15.2 % (0.0-8.0) Eosinophils (%) (Auto) 3.1 % (0.0-4.0) Basophils (%) (Auto) 0.3 % (0.0-2.0) Neutrophils # (Auto) 3.9 TH/MM3 (1.8-7.7) Lymphocytes # (Auto) 1.1 TH/MM3 (1.0-4.8) Monocytes # (Auto) 0.9 TH/MM3 (0-0.9) Eosinophils # (Auto) 0.2 TH/MM3 (0-0.4) Basophils # (Auto) 0.0 TH/MM3 (0-0.2) CBC Comment DIFF FINAL Differential Comment Blood Urea Nitrogen 9 MG/DL (7-18) 11 MG/DL (7-18) Creatinine 0.71 MG/DL (0.60-1.30) 0.59 MG/DL (0.60-1.30) Random Glucose 71 MG/DL (74-106) 79 MG/DL (74-106) Calcium Level 7.7 MG/DL (8.5-10.1) 7.7 MG/DL (8.5-10.1) Sodium Level 130 MEQ/L (136-145) 131 MEQ/L (136-145) Potassium Level 4.3 MEQ/L (3.5-5.1) 3.7 MEQ/L (3.5-5.1) Chloride Level 99 MEQ/L (98-107) 99 MEQ/L (98-107) Carbon Dioxide Level 17.9 MEQ/L (21.0-32.0) 19.2 MEQ/L (21.0-32.0) Anion Gap 13 MEQ/L (5-15) 13 MEQ/L (5-15) Estimat Glomerular Filtration Rate 106 ML/MIN (>89) 131 ML/MIN (>89) Blood Gas Puncture Site LT RADIAL Blood Gas Patient Temperature 98.6 Blood Gas HCO3 22 mmol/L (22-26) Blood Gas Base Excess -1.6 mmol/L (-2-2) Blood Gas Oxygen Saturation 87 % (90-100) Arterial Blood pH 7.46 (7.380-7.420) Arterial Blood Partial Pressure CO2 31 mmHg (38-42) Arterial Blood Partial Pressure O2 55 mmHg (61-120) Arterial Blood Oxygen Content 13.4 Vol % (12.0-20.0) Arterial Blood Carboxyhemoglobin 2.0 % (0-4) Arterial Blood Methemoglobin 1.7 % (0-2) Blood Gas Hemoglobin 10.9 G/DL (12.0-16.0) Oxygen Delivery Device ROOM AIR Blood Gas Inspired Oxygen 21 % Urine Color YELLOW (YELLW/STRAW) Urine Turbidity SL CLOUDY (CLEAR) Urine pH 5.5 (5.0-8.5) Urine Specific [place] GREATER/EQUAL 1.030 Urine Protein 30 mg/dL (NEG-TRACE) Urine Glucose (UA) NEG mg/dL (NEG) Urine Ketones 40 mg/dL (NEG) Urine Occult Blood LARGE (NEG) Urine Nitrite NEG (NEG) Urine Bilirubin NEG (NEG) Urine Urobilinogen 0.2 MG/DL (LESS THAN Urine Leukocyte Esterase NEG (NEG) Urine RBC 100-200 /hpf (0-3) Urine WBC 6-8 /hpf (0-5) Urine Squamous Epithelial Cells 0-5 /hpf (0-5) Urine Bacteria NONE /hpf (NONE) Microscopic Urinalysis Comment CULT NOT INDICATED Result Diagram: 01/09/18 1405 01/10/18 0922 Microbiology Microbiology Date/Time Source Procedure Growth Status 01/07/18 12:30 Blood Peripheral Aerobic Blood Culture - Preliminary NO GROWTH IN 4 DAYS Resulted 01/07/18 12:30 Blood Peripheral Anaerobic Blood Culture - Preliminary NO GROWTH IN 4 DAYS Resulted Imaging Last Impressions Chest X-Ray 01/07/18 0600 Signed Impressions: CONCLUSION: Diffuse interstitial prominence is unchanged. Aorta remains quite tortuous. Renal Ultrasound 01/06/18 0000 Signed Impressions: CONCLUSION: Negative renal ultrasound examination. Head CT 01/05/18 0000 Signed Impressions: CONCLUSION: 1. Senescent changes without acute intracranial abnormality. Assessment and Plan Disease Oriented Problem List: (1) Morbid obesity (2) Generalized weakness (3) Hypoxia (4) COPD (chronic obstructive pulmonary disease) (5) Possible sepsis (6) History of DVT and PE Symptom Scale: (1) Dyspnea and respiratory abnormalities 0-10 Scale: Unable to quantify (COPD with obesity hypoventilation/pickwickian) (2) Weakness 0-10 Scale: Unable to quantify (Due to patient lethargy) Pertinent Non-Medical Issues Psychosocial:He was born in [place], [place] and moved to [place], [place] at the age of 4. After his father at the young age of 27, his mother remarried and send him to school for a short time. He joined the [employer] at age 16 and left after 2 years at the urging of his first . After his divorce she attempted to reenlist but was unable to due to flat feet. 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 He remarried his current and they had 3 children, Narendra Doran (Allen), who resides with his , Cortney, in [place], daughter Nilda Cee who resides in [place] and son Rogers (Rick) . who travels the world extensively as a commercial counsel. Spiritual: Raised in the [employer], converted to [employer] julio later. Not a currently important concept in his life. Legal: He is , Madina, is his healthcare surrogate and DURABLE POWER OF GAS PLANT OPERATOR. Ethical issues impacting care: None noted. . Important Contacts : Madina Doran . Prognosis His prognosis is guarded. He has multiple comorbidities to include morbid obesity, likely diastolic heart failure, respiratory insufficiency compounded by morbid obesity, cardiomegaly, history of pulmonary embolus 2, eroded skin integrity and chronic fungal rash, history of heavy alcohol and tobacco use. He is admitted with weakness and hypoxia and improving on current therapy but remains at elevated risk of recurrent complications, decline and rehospitalization. . Code Status: No Code Plan PLAN: Legal decision maker: Patient at this time is oriented but too lethargic to independently make his own decisions. His has been named his healthcare surrogate and is readily available and willing to serve in that role. At this time joint decision making is recommended. Goals: Aggressive CODE STATUS: FULL CODE SYMPTOMS: * Weakness: This is chronic and progressive, likely worsened by debility secondary to sedentary behavior, and possible sepsis. Blood cultures are still pending, but initial blood culture shows gram-positive cocc, in 1 specimen, suspicious for contamination. He has become progressively weaker throughout his extended hospitalization and at this time the patient and family are requesting transition to hospice care. * Dyspnea: He does have an approximate [id number] history of tobacco use however quit nearly 40 years ago as well as 2 separate pulmonary emboli. He has oxygen at home which he uses infrequently. He is very sedentary but morbidly obese, causing any activity to exacerbate his dyspnea. Patient is requesting comfort measures for treatment of symptoms. Transition to hospice today. * Pain: Patient is painful from a multitude of blisters, bruises, skin tears on his skin as well as invasive lines, bedbound status. He has been reluctant to take pain medicine due to issues with constipation. * Constipation: He has not had a bowel movement since prior to admission. He is receiving Abby-Colace twice daily and has several medications to be given PRN , however has received none during his hospitalization. As the patient is transitioning to hospice care center, this can be addressed in that environment. Palliative care will continue to follow the patient during hospital course as condition evolves, to assist patient/decision-maker with understanding of their medical conditions, weighing benefits/burdens of treatment options, for clarification of goals of treatment. Additionally will assist with any symptoms of palliative concern. . Attestation To help prompt me to consider important information that might be impacting today's encounter and assessment, information from prior notes written by myself or my colleagues may have been "brought forward" into today's note. My signature on this note, however, is an attestation that I personally performed the exam, history, and/or decision-making noted today, and, unless otherwise indicated, the interactions with patient, family, and staff as well as the review of records all occurred today. I also attest that the listed assessment and stated plan reflect my best clinical judgment today based on the combination of historical information, prior notes, and today's exam/ interactions. When time spent is documented, it refers only to time spent today by the signer, or if indicated, combined time spent today by collaborating physician/nurse practitioner. . Aydee Harris Jan 11, 2018 11:26 am
--- NOTE | 2018-01-11 12:56 | HHI.PR ---
Subjective Remarks Seen earlier this morning, much more awake today. Yesterday I spent several hours discussing with family goals of care and what his wishes may be. Today he is alert and tells me he is tired of the constant decline and inability to do anything for himself as well as the persistent pain he is in. He told me he does not want to be resusitated or placed on a ventilator. Objective Vitals Vital Signs Date Time Temp Pulse Resp B/P (MAP) Pulse Ox O2 Delivery O2 Flow Rate FiO2 01/11/18 07:44 97 Nasal Cannula 2.00 01/11/18 07:01 88 18 127/49 (75) 92 01/11/18 06:01 84 17 121/53 (75) 93 01/11/18 06:00 84 01/11/18 04:20 98.4 84 16 111/43 (65) 96 01/11/18 04:00 84 01/11/18 03:00 86 24 116/59 (78) 96 01/11/18 02:07 92 21 120/59 (79) 96 01/11/18 02:00 92 01/11/18 01:00 92 17 94/49 (64) 95 01/11/18 00:00 98.7 90 23 102/81 (88) 96 01/11/18 00:00 90 01/10/18 23:00 92 16 110/64 (79) 93 01/10/18 22:00 90 01/10/18 22:00 90 17 112/51 (71) 96 01/10/18 21:00 94 19 109/57 (74) 95 01/10/18 20:29 98.3 90 17 132/58 (82) 96 01/10/18 20:21 96 Nasal Cannula 2.00 01/10/18 20:00 87 01/10/18 20:00 96 Nasal Cannula 2.00 28 01/10/18 19:01 92 21 111/49 (69) 94 01/10/18 16:04 94 Room Air 2.00 28 01/10/18 16:01 97.8 92 19 93/53 (66) 96 01/10/18 16:01 92 01/10/18 16:00 90 01/10/18 15:52 98 22 104/55 (71) 96 01/10/18 15:20 96 23 116/50 (72) 92 01/10/18 15:05 94 23 49/33 (38) 94 01/10/18 15:05 94 01/10/18 15:00 88 01/10/18 14:30 94 23 107/41 (63) 94 01/10/18 14:20 92 20 92/44 (60) 92 01/10/18 14:05 88 20 82/39 (53) 92 01/10/18 13:50 86 20 91/33 (52) 91 01/10/18 13:34 88 21 106/54 (71) 91 01/10/18 13:19 90 19 94/40 (58) 93 01/10/18 13:04 88 20 77/46 (56) 93 01/10/18 13:00 86 01/10/18 12:49 90 23 98/41 (60) 93 01/11/18 01/11/18 01/12/18 15:00 23:00 07:00 Intake Total 1250 ml Balance 1250 ml IV Total 1250 ml Result Diagram: 01/09/18 1405 01/10/18 0922 Imaging Last Impressions Chest X-Ray 01/07/18 0600 Signed Impressions: CONCLUSION: Diffuse interstitial prominence is unchanged. Aorta remains quite tortuous. Renal Ultrasound 01/06/18 0000 Signed Impressions: CONCLUSION: Negative renal ultrasound examination. Head CT 01/05/18 0000 Signed Impressions: CONCLUSION: 1. Senescent changes without acute intracranial abnormality. Objective Remarks GENERAL: Morbidly obese elderly male laying in bed in no acute distress alert and communicative when I walk into the room. SKIN: Diffuse ecchymoses. Arms wrapped with gauze and secured with davida bandage b /l. Warm and dry.erythema and tearing under breast and pannus ecchymosis throughout abdomen, back shoulder and arms, skin is very thin and fragile, tears on light contact if trying to rotate him in bed HEAD: Normocephalic. EYES: No scleral icterus. No injection or drainage. NECK: Supple, trachea midline. No JVD or lymphadenopathy. CARDIOVASCULAR: Regular rate and rhythm , 2/6 systolic murmur loudest at RSB. RESPIRATORY: Breath sounds equal bilaterally. No accessory muscle use. GASTROINTESTINAL: Abdomen soft, non-tender, nondistended. EXTREMITIES: 2+ edema lower extremities. NEUROLOGICAL: alert and oriented and follows commands. States he closes his eyes because light bothers him Date of Insertion: Jan 06, 2018 Date of Insertion: Jan 06, 2018 A/P Problem List: (1) Sepsis ICD Codes: A41.9 - Sepsis, unspecified organism Plan: on rocephin, azithromycin and vanco follow cultures has remained afebrile , will stop azithromycin (2) Respiratory insufficiency ICD Codes: R06.89 - Other abnormalities of breathing Status: Chronic Plan: mulitifactorial copd, hypoventilation from obesity cont supplemental oxygen , likely has kory but states he would not wear a mask (3) LEATHA (acute kidney injury) ICD Codes: N17.9 - Acute kidney failure, unspecified Status: Resolved Plan: renal function is improved with gentle hydration blood pressure is lower , hard to get accurate reading in calf will give fluid bolus as urine still looks dark (4) Hypoxia ICD Codes: R09.02 - Hypoxemia Status: Acute Plan: improved with oxygen, at home does not lie flat sits up in recliner cont to supplement 02 (5) Weakness ICD Codes: R53.1 - Weakness Status: Chronic Plan: per uses walker at home and motorized scooter, being seen by PT, tells me today he is able to move very little at home, has needed everything done for him , spends days watching TV and sleeping unable to get out of the house very often, she has to do everything (6) COPD (chronic obstructive pulmonary disease) ICD Codes: J44.9 - Chronic obstructive pulmonary disease, unspecified Status: Chronic Plan: continue nebulizers (7) History of DVT and PE Status: Chronic Plan: on eliquis (8) Extensive tearing away of skin ICD Codes: T14.8XXA - Other injury of unspecified body region, initial encounter Status: Chronic Plan: his skin is thin and fragile and tears extremely easily . He is morbidly obese and attempts to rotate him him and offload pressure points are complicated by the potential for developing new skin tears and bleeding. Wound care has been consulted and we were able to get a specialty bed that at home she has to use towels and cloths to help move him to avoid tearing his skin. Assessment and Plan After discussion with patient and she was going to call Aydee from palliative care. Danae Tian MD Jan 11, 2018 12:56
--- NOTE | 2018-01-11 18:00 | HHI.DS ---
Discharge Summary Admission Date Jan 05, 2018 at 20:37 Discharge Date: Jan 11, 2018 Admitting Diagnosis hypoxia, pulmonary edema (1) Sepsis Diagnosis: Secondary ICD Codes: A41.9 - Sepsis, unspecified organism (2) Respiratory insufficiency Diagnosis: Principal ICD Codes: R06.89 - Other abnormalities of breathing Status: Chronic (3) LEATHA (acute kidney injury) Diagnosis: Secondary ICD Codes: N17.9 - Acute kidney failure, unspecified Status: Resolved (4) Hypoxia Diagnosis: Secondary ICD Codes: R09.02 - Hypoxemia Status: Acute (5) Weakness Diagnosis: Principal ICD Codes: R53.1 - Weakness Status: Chronic (6) COPD (chronic obstructive pulmonary disease) Diagnosis: Secondary ICD Codes: J44.9 - Chronic obstructive pulmonary disease, unspecified Status: Chronic (7) History of DVT and PE Diagnosis: Secondary Status: Chronic (8) Extensive tearing away of skin Diagnosis: Principal ICD Codes: T14.8XXA - Other injury of unspecified body region, initial encounter Status: Chronic Consultants Critical Care Wound Care Palliative Care Hospice Brief History Per preparer samples and repairs H& P This is an 82-year-old male with morbid obesity, COPD/emphysema, history of DVT and PE, coronary artery disease, questionable history of congestive heart failure, chronically appearing pedal edema who presented to the emergency department having been weak for several months, worse over the last 24 hours. Patient is a very poor historian most history obtained from chart review. Yesterday he fell in the bathroom, and was unable to get up, sustained a severe skin tear on his left leg. Apparently for EMS patient was hypoxic to 50% in the field and they placed him on a nonrebreather. Patient was somnolent in the ED and was placed on BiPAP and an ABG showed respiratory alkalosis but no hypercarbia. Patient was subsequently weaned off of BiPAP. Chest x-ray demonstrates some possible pulmonary congestion, and on my review showed possible left lower lobe infiltrate. Left thigh had large skin tear with subcutaneous fat which was sutured by Dr. Morales. There are extensively multiple skin tears and bruising all over her skin. He received 500 mL fluid bolus for hypotension but accuracy of the BP reading cannot be determined according to the ED notes, patient was completely asymptomatic. Patient was started on Rocephin to cover for community-acquired pneumonia, received 1 dose of vancomycin also. Patient was seen the next day by preparer samples and repairs and was off bipap, on antibiotics transferred to medical team CBC/BMP: 01/09/18 1405 01/10/18 0922 Significant Findings Laboratory Tests Test 01/09/18 14:05 01/10/18 09:22 01/10/18 15:30 01/10/18 18:11 Red Blood Count 3.74 MIL/MM3 (4.50-5.90) Hemoglobin 12.0 GM/DL (13.0-17.0) Hematocrit 33.4 % (39.0-51.0) Platelet Count 144 TH/MM3 (150-450) Monocytes (%) (Auto) 15.2 % (0.0-8.0) Random Glucose 71 MG/DL (74-106) Calcium Level 7.7 MG/DL (8.5-10.1) 7.7 MG/DL (8.5-10.1) Sodium Level 130 MEQ/L (136-145) 131 MEQ/L (136-145) Carbon Dioxide Level 17.9 MEQ/L (21.0-32.0) 19.2 MEQ/L (21.0-32.0) Creatinine 0.59 MG/DL (0.60-1.30) Blood Gas Oxygen Saturation 87 % (90-100) Arterial Blood pH 7.46 (7.380-7.420) Arterial Blood Partial Pressure CO2 31 mmHg (38-42) Arterial Blood Partial Pressure O2 55 mmHg (61-120) Blood Gas Hemoglobin 10.9 G/DL (12.0-16.0) Urine Protein 30 mg/dL (NEG-TRACE) Urine Ketones 40 mg/dL (NEG) Urine Occult Blood LARGE (NEG) Urine RBC 100-200 /hpf (0-3) Urine WBC 6-8 /hpf (0-5) Imaging Last Impressions Chest X-Ray 01/07/18 0600 Signed Impressions: CONCLUSION: Diffuse interstitial prominence is unchanged. Aorta remains quite tortuous. Renal Ultrasound 01/06/18 0000 Signed Impressions: CONCLUSION: Negative renal ultrasound examination. Head CT 01/05/18 0000 Signed Impressions: CONCLUSION: 1. Senescent changes without acute intracranial abnormality. PE at Discharge GENERAL: Morbidly obese elderly male laying in bed in no acute distress alert and communicative when I walk into the room. SKIN: Diffuse ecchymoses. Arms wrapped with gauze and secured with mario bandage b /l. Warm and dry.erythema and tearing under breast and pannus ecchymosis throughout abdomen, back shoulder and arms, skin is very thin and fragile, tears on light contact if trying to rotate him in bed HEAD: Normocephalic. EYES: No scleral icterus. No injection or drainage. NECK: Supple, trachea midline. No JVD or lymphadenopathy. CARDIOVASCULAR: Regular rate and rhythm , 2/6 systolic murmur loudest at RSB. RESPIRATORY: Breath sounds equal bilaterally. No accessory muscle use. GASTROINTESTINAL: Abdomen soft, non-tender, nondistended. EXTREMITIES: 2+ edema lower extremities. NEUROLOGICAL: alert and oriented and follows commands. States he closes his eyes because light bothers him Hospital Course Patient continued on antibiotics with vanco added due to positive blood culture. He had extensive skin tears throughout his extremities and torso. His skin folds were torn and raw under his breasts an pannus. The slightest pressure or pull of his skin caused a tear. Wound care was consulted and specialty bed obtained. PT was ordered. Patient required oxygen to maintain saturations above 90. Per and then patient he stated had been in decline over the last years, unable to care for himself in even the smallest of things. He was in constant pain now worsened by the wounds on his skin. He did not want aggressive treatment of his condition. He wanted only to be kept comfortable. The patient discussed this with his family and and after discussion with Palliative care a hospice consult was placed. He was deemed a candidate for the care center and was to be transferred to the facility at discharge. Pt Condition on Discharge: Guarded Discharge Disposition: Hospice/Med Facility Discharge Instructions DIET: Follow Instructions for: As Tolerated, No Restrictions Activities you can perform: Regular-No Restrictions Continued Medications: Acetaminophen (Tylenol) 325 Mg Tab 650 MG PO HS PRN for pain, TAB 0 Refills Allopurinol (Allopurinol) 300 Mg Tab 300 MG PO DAILY for Gout, #30 TAB 0 Refills Apixaban (Eliquis) 2.5 Mg Tab 2.5 MG PO BID for Blood Clot Prevention, TAB 0 Refills Cholecalciferol (D3 Super Strength) 2,000 Unit Cap 2000 UNITS PO DAILY for Nutritional Supplement, #30 CAP 0 Refills Hydrocodone-Acetaminophen (Hydrocodone-Acetaminophen) 10-325 mg Tab 1 TAB PO Q6H PRN for PAIN, TAB 0 Refills Levothyroxine (Levothyroxine) 88 Mcg Tab 88 MCG PO DAILY for Thyroid, #30 TAB 0 Refills Metoprolol Tartrate (Metoprolol Tartrate) 25 Mg Tab 25 MG PO BID, #60 TAB 0 Refills [place] ([place] Repens) (Saw [place] (Serenoa Repens)) 450 Mg Cap 450 MG PO DAILY, CAP 0 Refills Discontinued Medications: Atorvastatin (Atorvastatin) 40 Mg Tab 40 MG PO HS for Cholesterol Management, #30 TAB 0 Refills Losartan (Losartan) 25 Mg Tab 25 MG PO DAILY for Blood Pressure Management, #30 TAB 0 Refills Magnesium Oxide (Magnesium Oxide) 400 Mg Tab 400 MG PO DAILY for Nutritional Supplement, TAB 0 Refills Potassium Chloride ER (Potassium Chloride ER) 10 Meq Tab 20 MEQ PO DAILY for Electrolyte Replacement, #30 TAB 0 Refills Additional Information 1. Reposition patient every 2 hours for comfort and offloading.Using draw sheet only do not pull on patient skin. 2. Cleanse All open areas with normal saline pat dry. 3. Leave Versatel on upper extremities, left lower extremity ,Torso,upper back in place x7 days may change secondary dressing (ABD,soft rolled gauze,Mario wrap) as needed for exudate management/dislodgement.Sign and date all dressings. 4. Apply Remedy antifungal powder to pannus,groin,breast skin folds BID or as needed with pericare. 5. Encrust Torso skin tears BID (Encrusting 1.Apply thin even layer of stoma/ antifungal powder to wound base ,spray with Cavilon skin prep repeat x2 ) 6. Ensure patient is wearing sleeves on upper extremities when working with therapy. Danae Tian MD Jan 11, 2018 18:00
[2018-01-11] MEDS: ATORVASTATIN 40 MG TAB PO SCH (20:10)
== END 2018-01-11 21:45 | disposition hospice, inpatient (51) | DRG 871 ==
LOC: PHED 17:43 → PHEDA 20:37 → PHICU 01-06 01:01
PROVIDERS: ADMIT Family Medicine; ATTEND Family Medicine
PROC: 0JQM3ZZ Repair Left Upper Leg Subcutaneous Tissue and Fascia, Percutaneous Approach (ICD-10-PCS; principal; 2018-01-05)
PROC: 5A09357 Assistance with Respiratory Ventilation, Less than 24 Consecutive Hours, Continuous Positive Airway Pressure (ICD-10-PCS; 2018-01-05)
DX: A41.9 Sepsis, unspecified organism (principal); J18.9 Pneumonia, unspecified organism; N17.9 Acute kidney failure, unspecified; G93.41 Metabolic encephalopathy; E87.3 Alkalosis; I13.0 Hypertensive heart and chronic kidney disease with heart failure and stage 1 through stage 4 chronic kidney disease, or unspecified chronic kidney disease; I50.32 Chronic diastolic (congestive) heart failure; Z68.42 Body mass index [BMI] 45.0-49.9, adult; S71.112A Laceration without foreign body, left thigh, initial encounter; F41.9 Anxiety disorder, unspecified; I25.10 Atherosclerotic heart disease of native coronary artery without angina pectoris; S80.812A Abrasion, left lower leg, initial encounter; E66.01 Morbid (severe) obesity due to excess calories; R06.82 Tachypnea, not elsewhere classified; T14.8XXA Other injury of unspecified body region, initial encounter; R09.02 Hypoxemia; N18.2 Chronic kidney disease, stage 2 (mild); M10.9 Gout, unspecified; E78.00 Pure hypercholesterolemia, unspecified; E03.9 Hypothyroidism, unspecified; E07.9 Disorder of thyroid, unspecified; H91.90 Unspecified hearing loss, unspecified ear; B37.2 Candidiasis of skin and nail; E78.5 Hyperlipidemia, unspecified; R06.89 Other abnormalities of breathing; I87.2 Venous insufficiency (chronic) (peripheral); R23.3 Spontaneous ecchymoses; R60.0 Localized edema; R53.1 Weakness; R21 Rash and other nonspecific skin eruption; W18.30XA Fall on same level, unspecified, initial encounter; K59.00 Constipation, unspecified; K21.9 Gastro-esophageal reflux disease without esophagitis; N40.0 Benign prostatic hyperplasia without lower urinary tract symptoms; M19.90 Unspecified osteoarthritis, unspecified site; G47.33 Obstructive sleep apnea (adult) (pediatric); Z91.19 Patient's noncompliance with other medical treatment and regimen; Y92.002 Bathroom of unspecified non-institutional (private) residence as the place of occurrence of the external cause; Z86.711 Personal history of pulmonary embolism; Z74.01 Bed confinement status; Z87.891 Personal history of nicotine dependence; I25.2 Old myocardial infarction; Z85.828 Personal history of other malignant neoplasm of skin; Z86.718 Personal history of other venous thrombosis and embolism; Z79.01 Long term (current) use of anticoagulants; Z51.5 Encounter for palliative care; Z82.49 Family history of ischemic heart disease and other diseases of the circulatory system; J98.4 Other disorders of lung; Z66 Do not resuscitate
CPT/HCPCS: 12001; 36600; 70450; 71045; 76775; 80048; 80053; 81001; 82805; 83605; 83880; 84443; 84484; 85025; 85610; 85730; 87040; 87185; 87205; 93306; 94002; 94003; 94640; 94664; J0456; J0696; J2405; J3370; J7030; J7040; J7050